=== PATIENT | female | born 1955 | race Caucasian/White ===

== ENCOUNTER 2016-09-18 17:30 | Inpatient (IN) | payer MEDICARE ==
[~2016-09-18] VITALS: Ht 167.6 cm; Wt 107.3 kg
[~2016-09-18 17:30] MED LIST: ALBU18HF INH; AMLO10TA2 PO; ASPI-621 PO; ASPI325T80 PO; B12/1TAB3 PO; B6/F1TAB PO; CHOL20003 PO; CLOP75TA PO; DEXA2TAB PO; FOLI-17 PO; HYDR25TA6 PO; IBUP-1222 PO; INSU100V8 SQ; ISOS30TA PO; ISOS60TA36 PO; LEVO100T5 PO; LOSA50TA6 PO; MAGN400T36 PO; METF10002 PO; METH750T2 PO; METO-93 PO; METO50TA82 PO; NIAC500T PO; NITR0.4T8 SL; OMEG1CAP34 PO; POTA20TA91 PO; SIMV40TA3 PO; SIMV80TA3 PO; SOTA120T26 PO; TICA90TA PO; TRAV5DRO LEFTEYE; UBID1CAP24 PO; ZOCAR
[2016-09-18] MEDS ORDERED: SODIUM CHLORIDE 0.9% 1,000 ML IV ONE (17:39)
[2016-09-18] MEDS ORDERED: RIVA20TA PO (17:59)
[2016-09-18 18:14] LABS: HEMOGLOBIN 12.8 g/dL (11.7-16.4)
[2016-09-18 18:22] LABS: ASPARTATE AMINO TRANSFERASE 22 U/L (15-37); BLOOD UREA NITROGEN 18 mg/dL (7-18)
[2016-09-18] MEDS ORDERED: OMNIPAQUE 350 MG/ML, 100ML BOTTLE ONE (19:23)
[2016-09-18] MEDS ORDERED: SODIUM CHLORIDE FLUSH 10ML SYR IVF PRN (21:00)
[2016-09-18 22:16] VITALS: BP 156/70
[2016-09-18] MEDS ORDERED: BISACODYL 10 MG SUPP PR PRN (23:00)
[2016-09-18] MEDS ORDERED: LABETALOL 5MG/ML, 20ML IV PRN (23:00)
[2016-09-18] MEDS ORDERED: POLYETHYLENE GLYCOL 17 GM PACKET PO PRN (23:00)
[2016-09-18] MEDS ORDERED: ONDANSETRON ODT 4 MG PO PRN (23:00)
[2016-09-18] MEDS ORDERED: ACETAMINOPHEN 325 MG TABLET PO PRN (23:00)
[2016-09-18] MEDS ORDERED: TRAZODONE 50MG TABLET PO PRN (23:00)
[2016-09-18] MEDS ORDERED: DOCUSATE 100 MG CAPSULE PO PRN (23:00)
[2016-09-18] MEDS: SIMVASTATIN 40 MG TABLET PO SCH (23:20)
[2016-09-18] MEDS: SOTALOL 120MG TABLET PO SCH (23:20)
[2016-09-18] MEDS: SODIUM CHLORIDE 0.9% 1,000 ML IV SCH (23:20)
[2016-09-19] MEDS: INSULIN DETEMIR 100 UNITS/ML, PEN SQ-INSULIN SCH ×3 (00:39→22:14)
[2016-09-19] MEDS: TRAVOPROST OPHTH 0.004%, 2.5ML LEFTEYE SCH ×3 (00:39→22:13)
[2016-09-19 02:41] VITALS: BP 126/75
[2016-09-19 05:22] LABS: HEMOGLOBIN 12.3 g/dL (11.7-16.4)
[2016-09-19 05:35] LABS: BLOOD UREA NITROGEN 14 mg/dL (7-18)
[2016-09-19] MEDS: SODIUM CHLORIDE 0.9% 1,000 ML IV SCH ×3 (05:35→18:06)
[2016-09-19 05:39] LABS: ASPARTATE AMINO TRANSFERASE 20 U/L (15-37)
[2016-09-19] MEDS: INSULIN ASPART 100 UNITS/ML, PEN SQ-INSULIN SCH ×4 (07:00→22:14)
[2016-09-19 07:42] VITALS: BP 143/75
[2016-09-19] MEDS: B6 HOMEMEDPO SCH (09:00)
[2016-09-19] MEDS ORDERED: FOLIC ACID 1 MG TABLET PO SCH ×2 (09:00→09:37)
[2016-09-19] MEDS: B12 HOMEMEDPO SCH (09:00)
[2016-09-19] MEDS: LEVOMEFOLATE CALCIUM HOMEMEDPO SCH (09:00)
[2016-09-19] MEDS: OMEGA-3/FISH OIL CAPSULE PO SCH ×2 (09:40→22:19)
[2016-09-19] MEDS: AMLODIPINE 5 MG TABLET PO SCH (09:40)
[2016-09-19] MEDS: SOTALOL 120MG TABLET PO SCH ×2 (09:41→22:18)
[2016-09-19] MEDS: CHOLECALCIFEROL 1,000 UNIT TABLET PO SCH ×2 (09:41→22:19)
[2016-09-19] MEDS: LOSARTAN 50MG TABLET PO SCH (09:41)
[2016-09-19] MEDS: LEVOTHYROXINE 100 MCG TABLET PO SCH (09:41)
[2016-09-19] MEDS: ISOSORBIDE MONONITRATE ER 60 MG TABLET PO SCH (09:42)
[2016-09-19] MEDS: HYDROCHLOROTHIAZIDE 25 MG TABLET PO SCH (09:42)
[2016-09-19 11:59] VITALS: BP 139/77
[2016-09-19 13:29] LABS: HEMOGLOBIN 11.9 g/dL (11.7-16.4)
[2016-09-19] MEDS ORDERED: POTASSIUM CHLORIDE 20 MEQ TAB.ER.PRT PO ONE (13:30)
[2016-09-19 16:18] VITALS: BP 104/67
[2016-09-19] MEDS: MOVIPREP POWDER 1 PREP KIT PO SCH (18:06)
[2016-09-19 19:36] VITALS: BP 132/71
[2016-09-19] MEDS ORDERED: TEMPLATE NON-FORMULARY MED. (Ubidecarenone/Vit E Acetate (Co Q-10 100 Mg Softgel) 100 MG) PO SCH (21:00)
[2016-09-19] MEDS: SIMVASTATIN 40 MG TABLET PO SCH (22:19)
[2016-09-19 23:27] VITALS: BP 114/65
[2016-09-20] MEDS: SODIUM CHLORIDE 0.9% 1,000 ML IV SCH ×2 (01:07→08:07)
[2016-09-20] MEDS: MOVIPREP POWDER 1 PREP KIT PO SCH (01:08)
[2016-09-20 03:34] VITALS: BP 120/78
[2016-09-20] MEDS: INSULIN ASPART 100 UNITS/ML, PEN SQ-INSULIN SCH ×2 (07:00→11:00)
[2016-09-20 07:09] LABS: HEMOGLOBIN 11.8 g/dL (11.7-16.4)
[2016-09-20 07:20] VITALS: BP 129/79
[2016-09-20 07:20] LABS: ASPARTATE AMINO TRANSFERASE 23 U/L (15-37); BLOOD UREA NITROGEN 5 mg/dL (7-18)
[2016-09-20] MEDS: LOSARTAN 50MG TABLET PO SCH (08:07)
[2016-09-20] MEDS: SOTALOL 120MG TABLET PO SCH (08:07)
[2016-09-20] MEDS: AMLODIPINE 5 MG TABLET PO SCH (08:08)
[2016-09-20] MEDS: OMEGA-3/FISH OIL CAPSULE PO SCH (08:08)
[2016-09-20] MEDS: HYDROCHLOROTHIAZIDE 25 MG TABLET PO SCH (08:08)
[2016-09-20] MEDS: ISOSORBIDE MONONITRATE ER 60 MG TABLET PO SCH (08:09)
[2016-09-20] MEDS: LEVOTHYROXINE 100 MCG TABLET PO SCH (08:09)
[2016-09-20] MEDS: CHOLECALCIFEROL 1,000 UNIT TABLET PO SCH (08:09)
[2016-09-20] MEDS: B6 HOMEMEDPO SCH (08:12)
[2016-09-20] MEDS: TRAVOPROST OPHTH 0.004%, 2.5ML LEFTEYE SCH (08:12)
[2016-09-20] MEDS: LEVOMEFOLATE CALCIUM HOMEMEDPO SCH (08:12)
[2016-09-20] MEDS: B12 HOMEMEDPO SCH (08:12)
[2016-09-20] MEDS ORDERED: MIDAZOLAM 1 MG/ML, 5ML ONE (08:33)
[2016-09-20] MEDS ORDERED: FENTANYL PF 100 MCG/2ML ONE (08:33)
[2016-09-20] MEDS: INSULIN DETEMIR 100 UNITS/ML, PEN SQ-INSULIN SCH (11:44)
[2016-09-20 13:00] VITALS: BP 122/68
[2016-09-20 13:32] VITALS: BP 146/79
[2016-09-20 16:29] VITALS: BP 136/82
== END 2016-09-20 17:41 | disposition home health service (06) | DRG 394 ==
LOC: ED 20:55 → EDIP 20:56 → ED 21:25 → 4NOR 22:01 → DCLOUNGE 09-20 16:34
PROVIDERS: ADMIT Internal Medicine; ATTEND Internal Medicine
PROC: 0DBN8ZX Excision of Sigmoid Colon, Via Natural or Artificial Opening Endoscopic, Diagnostic (ICD-10-PCS; 2016-09-20)
PROC: 0DBM8ZX Excision of Descending Colon, Via Natural or Artificial Opening Endoscopic, Diagnostic (ICD-10-PCS; 2016-09-20)
PROC: 0DBK8ZX Excision of Ascending Colon, Via Natural or Artificial Opening Endoscopic, Diagnostic (ICD-10-PCS; principal; 2016-09-20 09:00)
DX: K64.4 Residual hemorrhoidal skin tags (principal); N17.9 Acute kidney failure, unspecified; D68.69 Other thrombophilia; K63.5 Polyp of colon; R79.89 Other specified abnormal findings of blood chemistry; I25.10 Atherosclerotic heart disease of native coronary artery without angina pectoris; E11.9 Type 2 diabetes mellitus without complications; I10 Essential (primary) hypertension; E66.01 Morbid (severe) obesity due to excess calories; E78.5 Hyperlipidemia, unspecified; I48.0 Paroxysmal atrial fibrillation; K76.0 Fatty (change of) liver, not elsewhere classified; R16.0 Hepatomegaly, not elsewhere classified; Z85.038 Personal history of other malignant neoplasm of large intestine; Z79.4 Long term (current) use of insulin; Z79.01 Long term (current) use of anticoagulants; I25.2 Old myocardial infarction; Z90.49 Acquired absence of other specified parts of digestive tract; Z95.1 Presence of aortocoronary bypass graft; Z90.710 Acquired absence of both cervix and uterus; Z95.5 Presence of coronary angioplasty implant and graft; Z88.5 Allergy status to narcotic agent; Z88.0 Allergy status to penicillin; Z91.011 Allergy to milk products; Z88.8 Allergy status to other drugs, medicaments and biological substances; Z80.1 Family history of malignant neoplasm of trachea, bronchus and lung
CPT/HCPCS: 36415; 74177; 80053; 82962; 83036; 83735; 85014; 85018; 85025; 85610; 85730; 86850; 86900; 88305; 96360; 96361; J2250; J3010; Q9967; J1815; J7030

== ENCOUNTER 2016-09-24 13:18 | Inpatient (IN) | payer MEDICARE ==
[~2016-09-24] VITALS: Ht 167.6 cm; Wt 109.1 kg
[~2016-09-24 13:18] MED LIST changes: +RIVA20TA PO
[2016-09-24] MEDS ORDERED: PANTOPRAZOLE 80 MG in SODIUM CHLORIDE 0.9% 100 ML IV SCH (13:45)
[2016-09-24] MEDS ORDERED: PANTOPRAZOLE 80 MG in SODIUM CHLORIDE 0.9% 50 ML IVPB ONE (13:45)
[2016-09-24] MEDS ORDERED: SODIUM CHLORIDE 0.9% 1,000ML IVBOLUS ONE (14:00)
[2016-09-24] MEDS ORDERED: SODIUM CHLORIDE FLUSH 10ML SYR IVF ONE (14:00)
[2016-09-24 14:21] LABS: ASPARTATE AMINO TRANSFERASE 20 U/L (15-37); BLOOD UREA NITROGEN 13 mg/dL (7-18)
[2016-09-24] MEDS ORDERED: HYDROcodone/APAP 5/325 TABLET PO PRN (16:30)
[2016-09-24] MEDS ORDERED: NITROGLYCERIN 0.4 MG BOTTLE (25 TABS) SL PRN (16:30)
[2016-09-24] MEDS ORDERED: ACETAMINOPHEN 325 MG TABLET PO PRN (16:30)
[2016-09-24] MEDS ORDERED: LORazepam 2 MG/ML, 1ML IVPush PRN (16:30)
[2016-09-24] MEDS ORDERED: MORPHINE SULFATE 4 MG/ML, 1ML IVPush PRN (16:30)
[2016-09-24] MEDS ORDERED: ONDANSETRON 2MG/ML, 2ML IVP PRN (16:30)
[2016-09-24 18:15] VITALS: BP 107/68
[2016-09-24 19:09] VITALS: BP 133/76
[2016-09-24] MEDS: MOVIPREP POWDER 1 PREP KIT PO SCH ×2 (20:00→20:30)
[2016-09-24] MEDS: INSULIN ASPART 100 UNITS/ML, PEN SQ-INSULIN SCH (21:00)
[2016-09-24] MEDS ORDERED: SIMVASTATIN 40 MG TABLET PO SCH (22:00)
[2016-09-24] MEDS: SOTALOL 120MG TABLET PO SCH (23:25)
[2016-09-25 01:31] VITALS: BP 127/84
[2016-09-25] MEDS: INSULIN REGULAR 100 UNITS/ML, 3ML VIAL SQ-INSULIN SCH ×2 (03:00→09:00)
[2016-09-25 05:23] LABS: ASPARTATE AMINO TRANSFERASE 20 U/L (15-37); BLOOD UREA NITROGEN 12 mg/dL (7-18)
[2016-09-25] MEDS ORDERED: LEVOTHYROXINE 100 MCG TABLET PO SCH (06:00)
[2016-09-25] MEDS: INSULIN ASPART 100 UNITS/ML, PEN SQ-INSULIN SCH ×2 (06:46→11:00)
[2016-09-25 07:38] VITALS: BP 127/79
[2016-09-25] MEDS ORDERED: FENTANYL PF 100 MCG/2ML ONE (07:53)
[2016-09-25] MEDS ORDERED: MIDAZOLAM 1 MG/ML, 5ML ONE (07:53)
[2016-09-25] MEDS ORDERED: ISOSORBIDE MONONITRATE ER 60 MG TABLET PO SCH (09:00)
[2016-09-25] MEDS ORDERED: AMLODIPINE 5 MG TABLET PO SCH (09:00)
[2016-09-25] MEDS ORDERED: LOSARTAN 50MG TABLET PO SCH (09:00)
[2016-09-25] MEDS ORDERED: HYDROCHLOROTHIAZIDE 25 MG TABLET PO SCH (09:00)
[2016-09-25] MEDS: MOVIPREP POWDER 1 PREP KIT PO SCH (09:00)
[2016-09-25 09:19] VITALS: BP 140/75
[2016-09-25] MEDS: SOTALOL 120MG TABLET PO SCH (09:29)
[2016-09-25] MEDS: HYDROCORTISONE 25 MG SUPP PR SCH ×2 (09:30→11:07)
[2016-09-25] MEDS ORDERED: HYDR25SU21 PR ×2 (13:07→13:09)
[2016-09-25 13:08] VITALS: BP 127/74
[2016-09-25] MEDS ORDERED: HYDR25SU3 PR (14:05)
[2016-09-25 14:10] VITALS: BP 119/55
[2016-09-25] MEDS ORDERED: TRAVOPROST OPHTH 0.004%, 2.5ML OP SCH (21:00)
[2016-09-26] MEDS ORDERED: PSYLLIUM PACKET PO SCH (09:00)
== END 2016-09-25 15:10 | disposition home or self-care (01) | DRG 813 ==
LOC: ED 14:13 → EDIP 16:31 → 4NOR 17:47 → DCLOUNGE 09-25 15:00
PROVIDERS: ADMIT Hospitalist; ATTEND Hospitalist
PROC: 0W3P8ZZ Control Bleeding in Gastrointestinal Tract, Via Natural or Artificial Opening Endoscopic (ICD-10-PCS; principal; 2016-09-25 08:30)
DX: D68.32 Hemorrhagic disorder due to extrinsic circulating anticoagulants (principal); K63.3 Ulcer of intestine; K64.8 Other hemorrhoids; E66.01 Morbid (severe) obesity due to excess calories; I25.10 Atherosclerotic heart disease of native coronary artery without angina pectoris; I10 Essential (primary) hypertension; K57.30 Diverticulosis of large intestine without perforation or abscess without bleeding; E11.9 Type 2 diabetes mellitus without complications; E78.5 Hyperlipidemia, unspecified; F41.9 Anxiety disorder, unspecified; I48.0 Paroxysmal atrial fibrillation; K63.5 Polyp of colon; K64.4 Residual hemorrhoidal skin tags; Z79.4 Long term (current) use of insulin; I25.2 Old myocardial infarction; Z85.038 Personal history of other malignant neoplasm of large intestine; Z79.01 Long term (current) use of anticoagulants; Z80.1 Family history of malignant neoplasm of trachea, bronchus and lung; Z86.010 Personal history of colon polyps; Z90.49 Acquired absence of other specified parts of digestive tract; Z95.0 Presence of cardiac pacemaker; Z95.1 Presence of aortocoronary bypass graft; Z95.5 Presence of coronary angioplasty implant and graft; Z68.38 Body mass index [BMI] 38.0-38.9, adult; Z90.710 Acquired absence of both cervix and uterus; Z88.5 Allergy status to narcotic agent; Z88.0 Allergy status to penicillin; Z88.8 Allergy status to other drugs, medicaments and biological substances; Z91.011 Allergy to milk products; Z82.49 Family history of ischemic heart disease and other diseases of the circulatory system; T45.515A Adverse effect of anticoagulants, initial encounter
CPT/HCPCS: 36415; 80053; 82962; 83690; 85025; 85610; 85730; 86850; 86900; 96365; 96366; J2250; J3010; C9113; J7030

== ENCOUNTER 2016-10-17 14:00 | Emergency (ER) | payer MEDICARE ==
[~2016-10-17] VITALS: Ht 167.6 cm; Wt 108.4 kg
[~2016-10-17 14:00] MED LIST changes: +HYDR25SU21 PR; +HYDR25SU3 PR
[2016-10-17] MEDS ORDERED: SODIUM CHLORIDE 0.9% 1,000ML IVBOLUS ONE (15:30)
[2016-10-17] MEDS ORDERED: SODIUM CHLORIDE FLUSH 10ML SYR IVF ONE (15:30)
[2016-10-17 16:34] LABS: BLOOD UREA NITROGEN 17 mg/dL (7-18)
[2016-10-17 16:35] VITALS: BP 110/71
[2016-10-17 16:38] LABS: ASPARTATE AMINO TRANSFERASE 23 U/L (15-37)
== END 2016-10-17 17:06 | disposition home or self-care (01) ==
LOC: ED 17:00
DX: K62.5 Hemorrhage of anus and rectum (principal); K64.8 Other hemorrhoids; E11.9 Type 2 diabetes mellitus without complications; I10 Essential (primary) hypertension; I25.810 Atherosclerosis of coronary artery bypass graft(s) without angina pectoris; Z95.1 Presence of aortocoronary bypass graft; I25.2 Old myocardial infarction; Z90.710 Acquired absence of both cervix and uterus; Z90.49 Acquired absence of other specified parts of digestive tract
CPT/HCPCS: 36415; 80053; 83690; 85025; 99284

== ENCOUNTER 2017-08-20 13:52 | Inpatient (IN) | payer MEDICARE ==
[~2017-08-20] VITALS: Ht 167.6 cm; Wt 110.6 kg
[~2017-08-20 13:52] MED LIST changes: +CHOL2000 PO; -CHOL20003 PO; +NITR0.4T28 SL; -NITR0.4T8 SL; -UBID1CAP24 PO; +UBID1CAP43 PO
[2017-08-20] MEDS ORDERED: SODIUM CHLORIDE 0.9% 1,000 ML IV ONE (14:09)
[2017-08-20] MEDS ORDERED: NITROGLYCERIN SINGLE TAB 0.4 MG SL ONE (14:19)
[2017-08-20] MEDS ORDERED: ASPIRIN 81 MG TABLET CHEW ONE (14:19)
[2017-08-20] MEDS ORDERED: ASPIRIN 81 MG TABLET CHEW PO ONE (14:30)
[2017-08-20] MEDS ORDERED: NITROGLYCERIN SINGLE TAB 0.4 MG SL PRN (14:30)
[2017-08-20] MEDS ORDERED: FLUT15.88 NAS (14:40)
[2017-08-20] MEDS ORDERED: ASPI-496 PO (14:40)
[2017-08-20] MEDS ORDERED: INSU100I13 SQ (14:40)
[2017-08-20 14:41] LABS: BASOPHILS # (AUTO) 0.05 x10^3/uL (0-0.1); BASOPHILS % (AUTO) 0 % (0-1); EOSINOPHILS # (AUTO) 0.24 x10^3/uL (0-0.4); EOSINOPHILS % (AUTO) 2 % (1-7); LYMPHOCYTES # (AUTO) 1.94 x10^3/uL (1-3.4); LYMPHOCYTES % (AUTO) 18 % (22-44); MD NO; MEAN CORPUSCULAR HEMOGLOBIN 29.5 pg (27.0-34.8); MEAN CORPUSCULAR HGB CONC 33.6 g/dL (32.4-35.8); MEAN CORPUSCULAR VOLUME 87.8 fL (80-100); MEAN PLATELET VOLUME 8.5 fL (7.4-10.4); MONOCYTES # (AUTO) 0.62 x10^3/uL (0.2-0.8); MONOCYTES % (AUTO) 6 % (2-9); NEUTROPHILS # (AUTO) 7.72 x10^3/uL (1.8-6.8); NEUTROPHILS % (AUTO) 73 % (42-75); PLATELET COUNT 249 x10^3/uL (130-400); RED BLOOD COUNT 4.59 x10^6/uL (3.82-5.3); RED CELL DISTRIBUTION WIDTH 17.1 % (9.6-15.2)
[2017-08-20 14:53] LABS: ALBUMIN 3.7 g/dL (3.4-5.0); ANION GAP 9 mmol/L (5-15); CALCIUM 9.2 mg/dL (8.5-10.1); CHLORIDE 101 mmol/L (98-107); CREATININE 1.07 mg/dL (0.55-1.02)
[2017-08-20 14:57] LABS: PROTHROMBIN TIME 10.4 Seconds (9.6-11.5); TROPONIN I 0.081 ng/mL (0.000-0.045)
[2017-08-20] MEDS ORDERED: HYDROcodone/APAP 5/325 TABLET PO PRN (18:00)
[2017-08-20] MEDS ORDERED: hydrALAzine 20 MG/ML, 1ML IVPush PRN (18:00)
[2017-08-20] MEDS ORDERED: NITROGLYCERIN 0.4 MG BOTTLE (25 TABS) SL SCH (18:00)
[2017-08-20] MEDS ORDERED: morphine SULFATE 10 MG/ML, 1ML IVPush PRN (18:00)
[2017-08-20] MEDS ORDERED: ACETAMINOPHEN 325 MG TABLET PO PRN (18:00)
[2017-08-20] MEDS ORDERED: TEMAZEPAM 15 MG CAPSULE PO PRN (18:00)
[2017-08-20] MEDS ORDERED: OMEGA-3/FISH OIL CAPSULE PO SCH (18:00)
[2017-08-20] MEDS ORDERED: ONDANSETRON 2MG/ML, 2ML IVPush PRN (18:00)
[2017-08-20] MEDS ORDERED: CHOLECALCIFEROL 1,000 UNIT TABLET PO SCH (18:00)
[2017-08-20 18:10] VITALS: BP 157/88
[2017-08-20 18:43] LABS: FREE T4 (FREE THYROXINE) 1.29 ng/dL (0.76-1.46); THYROID STIMULATING HORMONE 1.78 mIU/L (0.358-3.740)
[2017-08-20 19:24] LABS: HEMOGLOBIN A1C 6.7 % (4.2-6.3)
[2017-08-20] MEDS ORDERED: SIMVASTATIN 40 MG TABLET PO SCH (21:00)
[2017-08-20] MEDS ORDERED: MAGNESIUM OXIDE 400 MG TABLET PO SCH (21:00)
[2017-08-20] MEDS: DORZOLAMIDE OPHTH 2%, 10ML EACHEYE SCH (22:00)
[2017-08-20] MEDS: FLUTICASONE NASAL SPRAY 16GM NAS SCH (22:15)
[2017-08-20] MEDS: SOTALOL 80MG TABLET PO SCH (22:16)
[2017-08-20] MEDS: LOSARTAN 50MG TABLET PO SCH (22:16)
[2017-08-20] MEDS: ASPIRIN 81 MG TABLET EC PO SCH (22:16)
[2017-08-20] MEDS: INSULIN GLARGINE 100 UNITS/ML, PEN SQ-INSULIN SCH (22:16)
[2017-08-20] MEDS: SODIUM CHLORIDE 0.9% 1,000 ML IV SCH (22:17)
[2017-08-20 22:52] LABS: TROPONIN I 0.287 ng/mL (0.000-0.045)
[2017-08-20] MEDS ORDERED: HEPARIN 5,000 UNITS/ML, 1ML IV PRN (23:45)
[2017-08-20] MEDS ORDERED: HEPARIN 5,000 UNITS/ML, 1ML IV ONE (23:45)
[2017-08-20] MEDS ORDERED: HEPARIN 25,000 UNITS/500ML PMX 500 ML IV PRN (23:45)
[2017-08-21 00:45] VITALS: BP 140/78
[2017-08-21 04:59] LABS: BASOPHILS # (AUTO) 0.03 x10^3/uL (0-0.1); BASOPHILS % (AUTO) 0 % (0-1); EOSINOPHILS % (AUTO) 3 % (1-7); LYMPHOCYTES # (AUTO) 2.33 x10^3/uL (1-3.4); LYMPHOCYTES % (AUTO) 31 % (22-44); MD NO; MEAN CORPUSCULAR HEMOGLOBIN 29.6 pg (27.0-34.8); MEAN CORPUSCULAR HGB CONC 33.6 g/dL (32.4-35.8); MEAN CORPUSCULAR VOLUME 88.1 fL (80-100); MEAN PLATELET VOLUME 8.7 fL (7.4-10.4); MONOCYTES # (AUTO) 0.58 x10^3/uL (0.2-0.8); MONOCYTES % (AUTO) 8 % (2-9); NEUTROPHILS # (AUTO) 4.33 x10^3/uL (1.8-6.8); NEUTROPHILS % (AUTO) 58 % (42-75); PLATELET COUNT 185 x10^3/uL (130-400); RED BLOOD COUNT 4.27 x10^6/uL (3.82-5.3); RED CELL DISTRIBUTION WIDTH 16.5 % (9.6-15.2)
[2017-08-21 05:11] LABS: CHLORIDE 103 mmol/L (98-107)
[2017-08-21 05:27] LABS: ALANINE AMINOTRANSFERASE 30 U/L (12-78); ALBUMIN 3.4 g/dL (3.4-5.0); ALKALINE PHOSPHATASE 72 U/L (45-117); ANION GAP 9 mmol/L (5-15); BILIRUBIN,TOTAL 0.5 mg/dL (0.2-1.0); CALCIUM 8.8 mg/dL (8.5-10.1); CREATININE 0.98 mg/dL (0.55-1.02); TOTAL PROTEIN 6.3 g/dL (6.4-8.2); TROPONIN I 0.134 ng/mL (0.000-0.045)
[2017-08-21 07:49] VITALS: BP 149/87
[2017-08-21] MEDS ORDERED: REGADENOSON 0.4 MG/5 ML SYRINGE ONE (08:07)
[2017-08-21] MEDS: FLUTICASONE NASAL SPRAY 16GM NAS SCH ×3 (08:26→20:12)
[2017-08-21] MEDS: DORZOLAMIDE OPHTH 2%, 10ML EACHEYE SCH ×2 (08:27→20:11)
[2017-08-21] MEDS: LEVOMEFOLATE CALCIUM HOMEMEDPO SCH (08:28)
[2017-08-21] MEDS: B6 HOMEMEDPO SCH (08:28)
[2017-08-21] MEDS: B12 HOMEMEDPO SCH (08:28)
[2017-08-21] MEDS: SOTALOL 80MG TABLET PO SCH ×2 (08:30→20:11)
[2017-08-21] MEDS: POTASSIUM CHLORIDE 20 MEQ TAB.ER.PRT PO SCH (08:30)
[2017-08-21] MEDS: HYDROCHLOROTHIAZIDE 25 MG TABLET PO SCH (08:30)
[2017-08-21] MEDS: PANTOPROZOLE 40MG TABLET PO SCH ×2 (08:31→08:33)
[2017-08-21] MEDS: MAGNESIUM OXIDE 400 MG TABLET PO SCH (08:31)
[2017-08-21] MEDS: LEVOTHYROXINE 100 MCG TABLET PO SCH (08:32)
[2017-08-21] MEDS ORDERED: SIMVASTATIN 20 MG TABLET PO SCH (08:32)
[2017-08-21] MEDS: LOSARTAN 50MG TABLET PO SCH ×2 (08:33→20:11)
[2017-08-21] MEDS: AMLODIPINE 2.5 MG TABLET PO SCH (08:44)
[2017-08-21 08:58] LABS: CHOL/HDL RATIO 4.9; LDL/HDL RATIO 1.8 (0.5-3.0)
[2017-08-21] MEDS ORDERED: FOLIC ACID 1 MG TABLET PO SCH (09:00)
[2017-08-21] MEDS ORDERED: ISOSORBIDE MONONITRATE ER 60 MG TABLET PO SCH (09:00)
[2017-08-21] MEDS ORDERED: TRAVOPROST OPHTH 0.004%, 2.5ML LEFTEYE SCH (09:00)
[2017-08-21] MEDS ORDERED: ENOXAPARIN 30 MG/0.3 ML SQ SCH (09:00)
[2017-08-21] MEDS: SODIUM CHLORIDE 0.9% 1,000 ML IV SCH (12:08)
[2017-08-21] MEDS: FOLIC ACID 1 MG TABLET PO SCH (12:08)
[2017-08-21 13:08] VITALS: BP 142/80
[2017-08-21] MEDS ORDERED: VERAPAMIL 2.5 MG/ML, 2ML ONE (14:54)
[2017-08-21] MEDS ORDERED: FENTANYL PF 100 MCG/2ML ONE (14:54)
[2017-08-21] MEDS ORDERED: LIDOCAINE 2%, 20ML ONE (14:54)
[2017-08-21] MEDS ORDERED: HEPARIN 1,000 UNITS/ML, 10ML ONE (14:54)
[2017-08-21] MEDS ORDERED: MIDAZOLAM 1 MG/ML, 5ML ONE (14:55)
[2017-08-21] MEDS ORDERED: DIPHENHYDRAMINE 50 MG/ML, 1ML ONE (15:13)
[2017-08-21] MEDS ORDERED: CLOPIDOGREL 300 MG TABLET ONE ×2 (15:39→16:01)
[2017-08-21] MEDS ORDERED: BIVALIRUDIN 250 MG ONE (15:39)
[2017-08-21] MEDS ORDERED: ADENOSINE 6 MG/2 ML ONE (15:56)
[2017-08-21] MEDS ORDERED: EPTIFIBATIDE 20 MG/10 ML ONE (16:00)
[2017-08-21] MEDS ORDERED: SODIUM CHLORIDE 0.9% 1,000 ML IV SCH (16:11)
[2017-08-21 20:07] VITALS: BP 138/83
[2017-08-21] MEDS: INSULIN GLARGINE 100 UNITS/ML, PEN SQ-INSULIN SCH (20:10)
[2017-08-21] MEDS: ASPIRIN 81 MG TABLET EC PO SCH (20:11)
[2017-08-22 01:02] VITALS: BP 147/79
[2017-08-22] MEDS: PANTOPROZOLE 40MG TABLET PO SCH (07:30)
[2017-08-22] MEDS: HYDROCHLOROTHIAZIDE 25 MG TABLET PO SCH (07:52)
[2017-08-22] MEDS: SOTALOL 80MG TABLET PO SCH (07:52)
[2017-08-22] MEDS: POTASSIUM CHLORIDE 20 MEQ TAB.ER.PRT PO SCH (07:53)
[2017-08-22] MEDS: MAGNESIUM OXIDE 400 MG TABLET PO SCH (07:53)
[2017-08-22] MEDS: LOSARTAN 50MG TABLET PO SCH (07:54)
[2017-08-22] MEDS: AMLODIPINE 2.5 MG TABLET PO SCH (07:54)
[2017-08-22 08:18] VITALS: BP 142/73
[2017-08-22] MEDS: LEVOMEFOLATE CALCIUM HOMEMEDPO SCH (09:00)
[2017-08-22] MEDS: B6 HOMEMEDPO SCH (09:00)
[2017-08-22] MEDS ORDERED: CLOPIDOGREL 75 MG TABLET PO SCH (09:00)
[2017-08-22] MEDS: B12 HOMEMEDPO SCH (09:00)
[2017-08-22] MEDS: FOLIC ACID 1 MG TABLET PO SCH (12:38)
[2017-08-22] MEDS: LEVOTHYROXINE 100 MCG TABLET PO SCH (12:38)
[2017-08-22] MEDS: DORZOLAMIDE OPHTH 2%, 10ML EACHEYE SCH (12:39)
[2017-08-22 14:11] VITALS: BP 144/78
[2017-08-22] MEDS ORDERED: AMLO2.5T PO (14:58)
[2017-08-22] MEDS ORDERED: CLOP75TA PO (14:58)
[2017-08-22] MEDS ORDERED: MAGN400T26 PO (14:58)
== END 2017-08-22 18:21 | disposition home or self-care (01) | DRG 250 ==
LOC: ED 16:10 → EDIP 16:11 → SUATTDRO 16:36 → ED 17:04 → 5SO 18:14
PROVIDERS: ADMIT Internal Medicine; ATTEND Internal Medicine
PROC: 4A023N7 Measurement of Cardiac Sampling and Pressure, Left Heart, Percutaneous Approach (ICD-10-PCS; principal; 2017-08-21)
PROC: B2111ZZ Fluoroscopy of Multiple Coronary Arteries using Low Osmolar Contrast (ICD-10-PCS; 2017-08-21)
PROC: B2151ZZ Fluoroscopy of Left Heart using Low Osmolar Contrast (ICD-10-PCS; 2017-08-21)
PROC: 02703ZZ Dilation of Coronary Artery, One Artery, Percutaneous Approach (ICD-10-PCS; 2017-08-21)
DX: T82.855A Stenosis of coronary artery stent, initial encounter (principal); N17.0 Acute kidney failure with tubular necrosis; I21.4 Non-ST elevation (NSTEMI) myocardial infarction; D68.69 Other thrombophilia; E66.01 Morbid (severe) obesity due to excess calories; E11.9 Type 2 diabetes mellitus without complications; E03.9 Hypothyroidism, unspecified; E78.5 Hyperlipidemia, unspecified; I10 Essential (primary) hypertension; I25.10 Atherosclerotic heart disease of native coronary artery without angina pectoris; I34.0 Nonrheumatic mitral (valve) insufficiency; Y83.1 Surgical operation with implant of artificial internal device as the cause of abnormal reaction of the patient, or of later complication, without mention of misadventure at the time of the procedure; I35.0 Nonrheumatic aortic (valve) stenosis; I48.0 Paroxysmal atrial fibrillation; Z79.82 Long term (current) use of aspirin; Z68.39 Body mass index [BMI] 39.0-39.9, adult; Z80.1 Family history of malignant neoplasm of trachea, bronchus and lung; I25.2 Old myocardial infarction; Z82.49 Family history of ischemic heart disease and other diseases of the circulatory system; Z85.038 Personal history of other malignant neoplasm of large intestine; Z87.891 Personal history of nicotine dependence; Z90.49 Acquired absence of other specified parts of digestive tract; Z90.710 Acquired absence of both cervix and uterus; Z95.0 Presence of cardiac pacemaker; Z85.9 Personal history of malignant neoplasm, unspecified; Z88.0 Allergy status to penicillin; Z88.8 Allergy status to other drugs, medicaments and biological substances; Z91.011 Allergy to milk products
CPT/HCPCS: 36415; 71045; 78452; 80048; 80053; 80061; 82040; 82962; 83036; 83735; 83880; 84100; 84439; 84443; 84484; 85025; 85520; 85610; 92920; 93005; 93017; 93306; 93458; 93880; 99156; 99157; C1769; C1894; J0153; J0583; J1644; J2250; J2785; J3010; J3490; 92928; A9502; C1725; C1887; C9898; J1200; J1327; J1815; J7030; Q9967

== ENCOUNTER 2017-08-25 11:13 | Observation (INO) | payer MEDICARE ==
[~2017-08-25] VITALS: Ht 167.6 cm; Wt 104.9 kg
[~2017-08-25 11:13] MED LIST changes: +AMLO2.5T PO; +ASPI-496 PO; +FLUT15.88 NAS; +INSU100I13 SQ; +MAGN400T26 PO
[2017-08-25] MEDS ORDERED: SODIUM CHLORIDE FLUSH 10ML SYR IVF ONE (11:30)
[2017-08-25 12:11] LABS: BASOPHILS # (AUTO) 0.04 x10^3/uL (0-0.1); BASOPHILS % (AUTO) 0 % (0-1); EOSINOPHILS # (AUTO) 0.18 x10^3/uL (0-0.4); EOSINOPHILS % (AUTO) 2 % (1-7); LYMPHOCYTES # (AUTO) 2.04 x10^3/uL (1-3.4); LYMPHOCYTES % (AUTO) 19 % (22-44); MD NO; MEAN CORPUSCULAR HEMOGLOBIN 29.4 pg (27.0-34.8); MEAN CORPUSCULAR HGB CONC 32.9 g/dL (32.4-35.8); MEAN CORPUSCULAR VOLUME 89.2 fL (80-100); MEAN PLATELET VOLUME 8.6 fL (7.4-10.4); MONOCYTES # (AUTO) 0.66 x10^3/uL (0.2-0.8); MONOCYTES % (AUTO) 6 % (2-9); NEUTROPHILS # (AUTO) 8.02 x10^3/uL (1.8-6.8); NEUTROPHILS % (AUTO) 73 % (42-75); PLATELET COUNT 299 x10^3/uL (130-400); RED BLOOD COUNT 4.84 x10^6/uL (3.82-5.3); RED CELL DISTRIBUTION WIDTH 17.2 % (9.6-15.2)
[2017-08-25 12:17] LABS: INTERNATIONAL NORMALIZED RATIO 0.99 (0.93-1.1); PROTHROMBIN TIME 10.3 Seconds (9.6-11.5)
[2017-08-25 12:29] LABS: ALANINE AMINOTRANSFERASE 38 U/L (12-78); ALBUMIN 3.9 g/dL (3.4-5.0); ANION GAP 9 mmol/L (5-15); CHLORIDE 103 mmol/L (98-107); CREATININE 1.15 mg/dL (0.55-1.02)
[2017-08-25 12:33] LABS: ALKALINE PHOSPHATASE 82 U/L (45-117); BILIRUBIN,TOTAL 0.9 mg/dL (0.2-1.0); TOTAL PROTEIN 7.4 g/dL (6.4-8.2)
[2017-08-25 12:35] LABS: TROPONIN I 0.376 ng/mL (0.000-0.045)
[2017-08-25] MEDS ORDERED: ASPIRIN 325 MG TABLET PO ONE (13:00)
[2017-08-25] MEDS ORDERED: ASPIRIN 325 MG TABLET ONE (13:16)
[2017-08-25] MEDS ORDERED: DOCUSATE 100 MG CAPSULE PO PRN (15:00)
[2017-08-25] MEDS ORDERED: NITROGLYCERIN 0.4 MG BOTTLE (25 TABS) SL SCH (15:00)
[2017-08-25] MEDS ORDERED: ACETAMINOPHEN 325 MG TABLET PO PRN (15:00)
[2017-08-25] MEDS ORDERED: BISACODYL 10 MG SUPP PR PRN (15:00)
[2017-08-25] MEDS ORDERED: ONDANSETRON 2MG/ML, 2ML IVPush PRN (15:00)
[2017-08-25] MEDS ORDERED: morphine SULFATE 10 MG/ML, 1ML IVPush PRN (15:00)
[2017-08-25] MEDS ORDERED: SODIUM CHLORIDE 0.9% 1,000 ML IV ONE (15:00)
[2017-08-25] MEDS ORDERED: ENALAPRILAT 1.25 MG/ML, 2ML IVPush PRN (15:00)
[2017-08-25] MEDS ORDERED: ONDANSETRON ODT 4 MG PO PRN (15:00)
[2017-08-25 15:49] VITALS: BP 116/75
[2017-08-25] MEDS: metFORMIN 500 MG TABLET PO SCH ×2 (17:30→21:50)
[2017-08-25] MEDS: OMEGA-3/FISH OIL CAPSULE PO SCH ×2 (17:30→21:51)
[2017-08-25] MEDS: CHOLECALCIFEROL 1,000 UNIT TABLET PO SCH ×2 (17:30→21:50)
[2017-08-25 18:59] LABS: TROPONIN I 0.366 ng/mL (0.000-0.045)
[2017-08-25 19:51] VITALS: BP 145/76
[2017-08-25] MEDS ORDERED: SIMVASTATIN 40 MG TABLET PO SCH (21:00)
[2017-08-25] MEDS: TRAVOPROST OPHTH 0.004%, 2.5ML LEFTEYE SCH (21:00)
[2017-08-25] MEDS: FLUTICASONE NASAL SPRAY 16GM NAS SCH (21:00)
[2017-08-25] MEDS ORDERED: ASPIRIN 81 MG TABLET EC PO SCH (21:00)
[2017-08-25] MEDS ORDERED: INSULIN GLARGINE 100 UNITS/ML, PEN SQ-INSULIN SCH (21:00)
[2017-08-25] MEDS: LOSARTAN 50MG TABLET PO SCH (21:51)
[2017-08-25] MEDS: SOTALOL 80MG TABLET PO SCH (21:51)
[2017-08-25] MEDS: MAGNESIUM OXIDE 400 MG TABLET PO SCH (22:11)
[2017-08-26 01:27] VITALS: BP 107/70
[2017-08-26 04:56] LABS: BASOPHILS # (AUTO) 0.04 x10^3/uL (0-0.1); BASOPHILS % (AUTO) 1 % (0-1); EOSINOPHILS # (AUTO) 0.18 x10^3/uL (0-0.4); EOSINOPHILS % (AUTO) 2 % (1-7); LYMPHOCYTES # (AUTO) 2.35 x10^3/uL (1-3.4); LYMPHOCYTES % (AUTO) 29 % (22-44); MD NO; MEAN CORPUSCULAR HEMOGLOBIN 29.6 pg (27.0-34.8); MEAN CORPUSCULAR HGB CONC 33.4 g/dL (32.4-35.8); MEAN CORPUSCULAR VOLUME 88.6 fL (80-100); MEAN PLATELET VOLUME 8.5 fL (7.4-10.4); MONOCYTES % (AUTO) 7 % (2-9); NEUTROPHILS # (AUTO) 5.06 x10^3/uL (1.8-6.8); NEUTROPHILS % (AUTO) 62 % (42-75); PLATELET COUNT 219 x10^3/uL (130-400); RED BLOOD COUNT 4.26 x10^6/uL (3.82-5.3)
[2017-08-26 06:03] LABS: ALBUMIN 3.5 g/dL (3.4-5.0); ANION GAP 12 mmol/L (5-15); CALCIUM 8.7 mg/dL (8.5-10.1); CHLORIDE 100 mmol/L (98-107)
[2017-08-26 06:12] LABS: ALANINE AMINOTRANSFERASE 31 U/L (12-78); ALKALINE PHOSPHATASE 74 U/L (45-117); BILIRUBIN,TOTAL 0.7 mg/dL (0.2-1.0); CREATININE 1.24 mg/dL (0.55-1.02); FREE T4 (FREE THYROXINE) 1.25 ng/dL (0.76-1.46); TOTAL PROTEIN 6.5 g/dL (6.4-8.2)
[2017-08-26 08:11] VITALS: BP 125/74
[2017-08-26] MEDS: FLUTICASONE NASAL SPRAY 16GM NAS SCH (09:00)
[2017-08-26] MEDS ORDERED: ISOSORBIDE MONONITRATE ER 60 MG TABLET PO SCH (09:00)
[2017-08-26] MEDS ORDERED: SENNA/DOCUSATE TABLET PO SCH (09:00)
[2017-08-26] MEDS ORDERED: LEVOTHYROXINE 100 MCG TABLET PO SCH (09:00)
[2017-08-26] MEDS ORDERED: MULTIVITS,STRESS FORMULA 1 TABLET PO SCH (09:00)
[2017-08-26] MEDS ORDERED: CLOPIDOGREL 75 MG TABLET PO SCH (09:00)
[2017-08-26] MEDS ORDERED: HYDROCHLOROTHIAZIDE 25 MG TABLET PO SCH (09:00)
[2017-08-26] MEDS ORDERED: FOLIC ACID 1 MG TABLET PO SCH (09:00)
[2017-08-26] MEDS ORDERED: AMLODIPINE 2.5 MG TABLET PO SCH (09:00)
[2017-08-26] MEDS ORDERED: POTASSIUM CHLORIDE 20 MEQ TAB.ER.PRT PO SCH (09:00)
[2017-08-26] MEDS: TRAVOPROST OPHTH 0.004%, 2.5ML LEFTEYE SCH (09:01)
[2017-08-26] MEDS: MAGNESIUM OXIDE 400 MG TABLET PO SCH (09:02)
[2017-08-26] MEDS: LOSARTAN 50MG TABLET PO SCH (09:03)
[2017-08-26] MEDS: SOTALOL 80MG TABLET PO SCH (09:04)
[2017-08-26] MEDS: OMEGA-3/FISH OIL CAPSULE PO SCH (09:04)
[2017-08-26] MEDS: metFORMIN 500 MG TABLET PO SCH (09:09)
[2017-08-26] MEDS: CHOLECALCIFEROL 1,000 UNIT TABLET PO SCH (09:09)
[2017-08-26 13:23] VITALS: BP 126/64
[2017-08-26] MEDS ORDERED: FLUTICASONE NASAL SPRAY 16GM NAS SCH (21:00)
== END 2017-08-26 14:28 | disposition home or self-care (01) ==
LOC: ED 13:11 → INTOOBSV 13:41 → EDIP 13:41 → 5SO 15:35 → UNDODISIN 08-26 14:28
PROVIDERS: ADMIT Internal Medicine; ATTEND Internal Medicine
DX: R07.89 Other chest pain (principal); N17.9 Acute kidney failure, unspecified; I12.9 Hypertensive chronic kidney disease with stage 1 through stage 4 chronic kidney disease, or unspecified chronic kidney disease; N18.9 Chronic kidney disease, unspecified; I48.0 Paroxysmal atrial fibrillation; I25.10 Atherosclerotic heart disease of native coronary artery without angina pectoris; E11.22 Type 2 diabetes mellitus with diabetic chronic kidney disease; E78.5 Hyperlipidemia, unspecified; E66.01 Morbid (severe) obesity due to excess calories; E03.9 Hypothyroidism, unspecified; I25.2 Old myocardial infarction; Z80.1 Family history of malignant neoplasm of trachea, bronchus and lung; Z95.0 Presence of cardiac pacemaker; Z79.82 Long term (current) use of aspirin; Z95.5 Presence of coronary angioplasty implant and graft; Z82.49 Family history of ischemic heart disease and other diseases of the circulatory system; Z85.038 Personal history of other malignant neoplasm of large intestine
CPT/HCPCS: 36415; 71045; 80053; 82962; 83735; 83880; 84100; 84439; 84443; 84484; 85025; 85610; 85730; 93005; 96361; 96372; 96374; 99285; G0378; J1815; J2405; J7030; Q0162

== ENCOUNTER 2017-10-04 17:43 | Emergency (ER) | payer MEDICARE, OTHER ==
[~2017-10-04] VITALS: Ht 167.6 cm; Wt 107.8 kg
[2017-10-04 17:44] VITALS: BP 148/83
[2017-10-04 18:16] LABS: BASOPHILS # (AUTO) 0.07 x10^3/uL (0-0.1); BASOPHILS % (AUTO) 1 % (0-1); EOSINOPHILS # (AUTO) 0.15 x10^3/uL (0-0.4); EOSINOPHILS % (AUTO) 2 % (1-7); LYMPHOCYTES # (AUTO) 2.12 x10^3/uL (1-3.4); LYMPHOCYTES % (AUTO) 23 % (22-44); MD NO; MEAN CORPUSCULAR HEMOGLOBIN 30.2 pg (27.0-34.8); MEAN CORPUSCULAR HGB CONC 33.8 g/dL (32.4-35.8); MEAN CORPUSCULAR VOLUME 89.4 fL (80-100); MEAN PLATELET VOLUME 8.5 fL (7.4-10.4); MONOCYTES # (AUTO) 0.68 x10^3/uL (0.2-0.8); MONOCYTES % (AUTO) 7 % (2-9); NEUTROPHILS # (AUTO) 6.23 x10^3/uL (1.8-6.8); NEUTROPHILS % (AUTO) 67 % (42-75); PLATELET COUNT 294 x10^3/uL (130-400); RED BLOOD COUNT 4.48 x10^6/uL (3.82-5.3); RED CELL DISTRIBUTION WIDTH 16.4 % (9.6-15.2)
[2017-10-04 18:24] LABS: INTERNATIONAL NORMALIZED RATIO 0.97 (0.93-1.1)
[2017-10-04 18:27] LABS: ALBUMIN 3.9 g/dL (3.4-5.0); ANION GAP 9 mmol/L (5-15); CHLORIDE 104 mmol/L (98-107)
[2017-10-04 18:31] LABS: ALANINE AMINOTRANSFERASE 34 U/L (12-78); ALKALINE PHOSPHATASE 77 U/L (45-117); BILIRUBIN,TOTAL 0.6 mg/dL (0.2-1.0); CREATININE 1.15 mg/dL (0.55-1.02); TOTAL PROTEIN 7.4 g/dL (6.4-8.2)
== END 2017-10-04 19:40 | disposition home or self-care (01) ==
LOC: ED 19:12
DX: K64.8 Other hemorrhoids (principal); K92.1 Melena; E03.9 Hypothyroidism, unspecified; I48.0 Paroxysmal atrial fibrillation; I25.810 Atherosclerosis of coronary artery bypass graft(s) without angina pectoris; E11.9 Type 2 diabetes mellitus without complications; I11.9 Hypertensive heart disease without heart failure; E78.5 Hyperlipidemia, unspecified; Z85.038 Personal history of other malignant neoplasm of large intestine; Z95.1 Presence of aortocoronary bypass graft; Z90.49 Acquired absence of other specified parts of digestive tract; Z90.710 Acquired absence of both cervix and uterus; Z88.0 Allergy status to penicillin; Z88.5 Allergy status to narcotic agent; Z88.8 Allergy status to other drugs, medicaments and biological substances; Z91.011 Allergy to milk products
CPT/HCPCS: 36415; 80053; 83690; 85025; 85610; 85730; 99284

== ENCOUNTER → 2017-11-07 | Outpatient (CLI) | payer MEDICARE | LOC: CFH 10:28 | PROVIDERS: ATTEND Internal Medicine | DX: Z12.31 Encounter for screening mammogram for malignant neoplasm of breast (principal) | CPT/HCPCS: 77067 ==

== ENCOUNTER 2018-02-24 18:01 | Observation (INO) | payer MEDICARE, OTHER ==
[~2018-02-24] VITALS: Ht 167.6 cm; Wt 104.5 kg
[~2018-02-24 18:01] MED LIST changes: -AMLO10TA2 PO; +AMLO10TA6 PO; -AMLO2.5T PO; +AMLO2.5T3 PO; -LOSA50TA6 PO; +LOSA50TA7 PO; -SIMV80TA3 PO; +SIMV80TA7 PO
[2018-02-24] MEDS ORDERED: ASPIRIN 81 MG TABLET CHEW PO ONE (18:30)
[2018-02-24] MEDS ORDERED: SODIUM CHLORIDE 0.9% 1,000ML IVBOLUS ONE (18:30)
[2018-02-24] MEDS ORDERED: ASPIRIN 81 MG TABLET CHEW ONE (18:41)
[2018-02-24] MEDS ORDERED: DORZ10DR27 OP (18:57)
[2018-02-24 18:58] LABS: BASOPHILS # (AUTO) 0.03 x10^3/uL (0-0.1); BASOPHILS % (AUTO) 0 % (0-1); EOSINOPHILS # (AUTO) 0.06 x10^3/uL (0-0.4); EOSINOPHILS % (AUTO) 1 % (1-7); LYMPHOCYTES # (AUTO) 0.84 x10^3/uL (1-3.4); LYMPHOCYTES % (AUTO) 13 % (22-44); MD NO; MEAN CORPUSCULAR HEMOGLOBIN 30.7 pg (27.0-34.8); MEAN CORPUSCULAR HGB CONC 34.1 g/dL (32.4-35.8); MEAN CORPUSCULAR VOLUME 90.1 fL (80-100); MEAN PLATELET VOLUME 8.5 fL (7.4-10.4); MONOCYTES % (AUTO) 6 % (2-9); NEUTROPHILS # (AUTO) 5.09 x10^3/uL (1.8-6.8); NEUTROPHILS % (AUTO) 79 % (42-75); PLATELET COUNT 232 x10^3/uL (130-400); RED BLOOD COUNT 4.22 x10^6/uL (3.82-5.3); RED CELL DISTRIBUTION WIDTH 15.9 % (9.6-15.2)
[2018-02-24 19:10] LABS: ALBUMIN 3.7 g/dL (3.4-5.0); ANION GAP 9 mmol/L (5-15); CHLORIDE 102 mmol/L (98-107); CREATININE 1.25 mg/dL (0.55-1.02)
[2018-02-24 19:14] LABS: TROPONIN I < 0.015 ng/mL (0.000-0.045)
[2018-02-24 22:00] VITALS: BP 139/86
[2018-02-24 22:24] VITALS: BP 138/62
[2018-02-25] VITALS (8 sets, daily range): BP systolic 119–153; BP diastolic 74–86
[2018-02-25] MEDS: ASPIRIN 81 MG TABLET EC PO SCH ×2 (00:14→20:48)
[2018-02-25] MEDS: INSULIN GLARGINE 100 UNITS/ML, PEN SQ-INSULIN SCH ×2 (00:27→21:01)
[2018-02-25] MEDS ORDERED: DEXTROSE 4 GM TAB.CHEW PO PRN (00:30)
[2018-02-25] MEDS ORDERED: ONDANSETRON ODT 4 MG PO PRN (00:30)
[2018-02-25] MEDS ORDERED: morphine SULFATE 10 MG/ML, 1ML IVPush PRN (00:30)
[2018-02-25] MEDS ORDERED: GLUCAGON 1 MG IM PRN (00:30)
[2018-02-25] MEDS ORDERED: LABETALOL 5MG/ML, 20ML IVPush PRN (00:30)
[2018-02-25] MEDS ORDERED: NITROGLYCERIN 0.4 MG BOTTLE (25 TABS) SL SCH (00:30)
[2018-02-25] MEDS ORDERED: DEXTROSE 50%, 50ML SYRINGE IVPush PRN (00:30)
[2018-02-25] MEDS ORDERED: INSULIN GLARGINE 100 UNITS/ML, PEN SQ-INSULIN ONE (00:30)
[2018-02-25] MEDS ORDERED: ACETAMINOPHEN 325 MG TABLET PO PRN (00:30)
[2018-02-25] MEDS ORDERED: ONDANSETRON 2MG/ML, 2ML IVPush PRN (00:30)
[2018-02-25] MEDS: [UNRECOGNIZED DRUG - MIXTURE] MC SCH ×3 (00:48→15:01)
[2018-02-25] MEDS: SIMVASTATIN 40 MG TABLET PO SCH ×2 (00:50→20:47)
[2018-02-25 01:08] LABS: TROPONIN I < 0.015 ng/mL (0.000-0.045)
[2018-02-25] MEDS: LEVOTHYROXINE 100 MCG TABLET PO SCH (05:51)
[2018-02-25 06:10] LABS: TROPONIN I < 0.015 ng/mL (0.000-0.045)
[2018-02-25] MEDS ORDERED: DORZOLAMIDE HCL OP SCH (09:00)
[2018-02-25] MEDS ORDERED: POTASSIUM CHLORIDE 20 MEQ TAB.ER.PRT PO SCH (09:00)
[2018-02-25] MEDS: DORZOLAMIDE OPHTH 2%, 10ML EACHEYE SCH (09:26)
[2018-02-25] MEDS: LOSARTAN 50MG TABLET PO SCH ×2 (09:29→20:47)
[2018-02-25] MEDS: MAGNESIUM OXIDE 400 MG TABLET PO SCH ×2 (09:29→20:46)
[2018-02-25] MEDS: CLOPIDOGREL 75 MG TABLET PO SCH (09:30)
[2018-02-25] MEDS: SOTALOL 80MG TABLET PO SCH ×2 (09:31→20:47)
[2018-02-25] MEDS: ISOSORBIDE MONONITRATE ER 60 MG TABLET PO SCH (09:32)
[2018-02-25] MEDS: SODIUM CHLORIDE FLUSH 10ML SYR IVF SCH ×2 (09:35→20:46)
[2018-02-25] MEDS: INSULIN LISPRO 100 UNITS/ML, PEN SQ-INSULIN SCH ×3 (11:00→20:58)
[2018-02-25] MEDS: SODIUM CHLORIDE 0.9% 1,000 ML IV SCH (11:41)
[2018-02-25 11:55] LABS: CALCIUM 8.9 mg/dL (8.5-10.1); CHLORIDE 108 mmol/L (98-107)
[2018-02-25 11:58] LABS: ANION GAP 10 mmol/L (5-15)
[2018-02-25 12:39] LABS: CULTURE INDICATED? YES; MICROSCOPIC INDICATED
[2018-02-25] MEDS: POTASSIUM CHLORIDE 20 MEQ TAB.ER.PRT PO SCH (15:16)
[2018-02-26] VITALS (7 sets, daily range): BP systolic 110–136; BP diastolic 72–86
[2018-02-26] MEDS: SODIUM CHLORIDE 0.9% 1,000 ML IV SCH ×2 (01:55→15:23)
[2018-02-26] MEDS: LEVOTHYROXINE 100 MCG TABLET PO SCH (06:43)
[2018-02-26] MEDS: INSULIN LISPRO 100 UNITS/ML, PEN SQ-INSULIN SCH ×4 (07:00→20:39)
[2018-02-26] MEDS: SODIUM CHLORIDE FLUSH 10ML SYR IVF SCH ×2 (09:00→20:39)
[2018-02-26] MEDS: DORZOLAMIDE OPHTH 2%, 10ML EACHEYE SCH (10:12)
[2018-02-26] MEDS: POTASSIUM CHLORIDE 20 MEQ TAB.ER.PRT PO SCH (10:13)
[2018-02-26] MEDS: CLOPIDOGREL 75 MG TABLET PO SCH (10:13)
[2018-02-26] MEDS: SOTALOL 80MG TABLET PO SCH ×2 (10:13→20:38)
[2018-02-26] MEDS: MAGNESIUM OXIDE 400 MG TABLET PO SCH ×2 (10:13→20:38)
[2018-02-26] MEDS: LOSARTAN 50MG TABLET PO SCH ×2 (10:14→20:39)
[2018-02-26] MEDS: ISOSORBIDE MONONITRATE ER 60 MG TABLET PO SCH (13:25)
[2018-02-26] MEDS: INSULIN GLARGINE 100 UNITS/ML, PEN SQ-INSULIN SCH (20:38)
[2018-02-26] MEDS: ASPIRIN 81 MG TABLET EC PO SCH (20:38)
[2018-02-26] MEDS: SIMVASTATIN 40 MG TABLET PO SCH (20:39)
[2018-02-27 01:01] VITALS: BP 108/65
[2018-02-27] MEDS: SODIUM CHLORIDE 0.9% 1,000 ML IV SCH (03:05)
[2018-02-27] MEDS: LEVOTHYROXINE 100 MCG TABLET PO SCH (05:38)
[2018-02-27] MEDS: INSULIN LISPRO 100 UNITS/ML, PEN SQ-INSULIN SCH ×2 (07:00→11:00)
[2018-02-27 07:36] VITALS: BP 120/80
[2018-02-27] MEDS: LOSARTAN 50MG TABLET PO SCH (07:47)
[2018-02-27] MEDS: ISOSORBIDE MONONITRATE ER 60 MG TABLET PO SCH (07:47)
[2018-02-27] MEDS: SOTALOL 80MG TABLET PO SCH (07:47)
[2018-02-27] MEDS: CLOPIDOGREL 75 MG TABLET PO SCH (07:48)
[2018-02-27] MEDS: DORZOLAMIDE OPHTH 2%, 10ML EACHEYE SCH (07:48)
[2018-02-27] MEDS: POTASSIUM CHLORIDE 20 MEQ TAB.ER.PRT PO SCH (07:48)
[2018-02-27] MEDS: MAGNESIUM OXIDE 400 MG TABLET PO SCH (07:48)
[2018-02-27] MEDS: SODIUM CHLORIDE FLUSH 10ML SYR IVF SCH (07:50)
[2018-02-27 12:39] VITALS: BP 132/84
== END 2018-02-27 14:56 | disposition home or self-care (01) ==
LOC: ED 20:39 → OBSVTOIN 21:31 → 5SO 21:31 → INTOOBSV 21:31 → DCLOUNGE 02-27 14:37
PROVIDERS: ADMIT Internal Medicine; ATTEND Internal Medicine
DX: R07.9 Chest pain, unspecified (principal); R55 Syncope and collapse; I25.10 Atherosclerotic heart disease of native coronary artery without angina pectoris; I25.2 Old myocardial infarction; I12.9 Hypertensive chronic kidney disease with stage 1 through stage 4 chronic kidney disease, or unspecified chronic kidney disease; N18.9 Chronic kidney disease, unspecified; E03.9 Hypothyroidism, unspecified; E11.22 Type 2 diabetes mellitus with diabetic chronic kidney disease; E11.65 Type 2 diabetes mellitus with hyperglycemia; E66.9 Obesity, unspecified; E78.5 Hyperlipidemia, unspecified; I08.1 Rheumatic disorders of both mitral and tricuspid valves; I35.0 Nonrheumatic aortic (valve) stenosis; I48.0 Paroxysmal atrial fibrillation; Z79.4 Long term (current) use of insulin; Z85.038 Personal history of other malignant neoplasm of large intestine; Z88.0 Allergy status to penicillin; Z88.5 Allergy status to narcotic agent; Z90.710 Acquired absence of both cervix and uterus; Z95.0 Presence of cardiac pacemaker; Z95.5 Presence of coronary angioplasty implant and graft; Z95.1 Presence of aortocoronary bypass graft; Z90.49 Acquired absence of other specified parts of digestive tract
CPT/HCPCS: 36415; 71045; 80048; 81001; 82040; 82962; 83036; 83880; 84443; 84484; 85025; 87086; 93005; 93306; 96360; 96361; 96372; 99285; G0378; J1815; J7030

== ENCOUNTER 2018-07-16 02:13 | Observation (INO) | payer MEDICARE, OTHER ==
[~2018-07-16] VITALS: Ht 167.6 cm; Wt 102.0 kg
[~2018-07-16 02:13] MED LIST changes: -AMLO10TA6 PO; +AMLO10TA8 PO; -AMLO2.5T3 PO; +AMLO2.5T5 PO; -ASPI-621 PO; +ASPI81TA45 PO; +DORZ10DR27 OP; +LOSA50TA14 PO; -LOSA50TA7 PO; +SIMV80TA18 PO; -SIMV80TA7 PO
[2018-07-16] MEDS ORDERED: TIMO1DRO2 OP (02:31)
[2018-07-16] MEDS ORDERED: ATOR20TA PO (02:31)
[2018-07-16 02:47] LABS: BASOPHILS # (AUTO) 0.02 x10^3/uL (0-0.1); BASOPHILS % (AUTO) 0 % (0-1); EOSINOPHILS # (AUTO) 0.19 x10^3/uL (0-0.4); EOSINOPHILS % (AUTO) 2 % (1-7); LYMPHOCYTES # (AUTO) 1.85 x10^3/uL (1-3.4); LYMPHOCYTES % (AUTO) 23 % (22-44); MD NO; MEAN CORPUSCULAR HEMOGLOBIN 29.8 pg (27.0-34.8); MEAN CORPUSCULAR HGB CONC 33.6 g/dL (32.4-35.8); MEAN CORPUSCULAR VOLUME 88.8 fL (80-100); MONOCYTES # (AUTO) 0.72 x10^3/uL (0.2-0.8); MONOCYTES % (AUTO) 9 % (2-9); NEUTROPHILS # (AUTO) 5.37 x10^3/uL (1.8-6.8); NEUTROPHILS % (AUTO) 66 % (42-75); PLATELET COUNT 205 x10^3/uL (130-400); RED BLOOD COUNT 4.47 x10^6/uL (3.82-5.3); RED CELL DISTRIBUTION WIDTH 16.3 % (9.6-15.2)
--- NOTE | 2018-07-16 02:52 | NUR ---
PT HERE FOR PALPITATIONS AND HTN. VSS. PT HAS HX OF AFIB AND TX. PIV PLACED BY [facility]. PT RECIEVED 324 ASA WITH NO CHANGE. LAB AT BEDSIDE. CALL LIGHT IN REACH
[2018-07-16 02:59] LABS: ALANINE AMINOTRANSFERASE 15 U/L (12-78); ALBUMIN 3.6 g/dL (3.4-5.0); ANION GAP 9 mmol/L (5-15); CALCIUM 8.9 mg/dL (8.5-10.1); CHLORIDE 108 mmol/L (98-107); CREATININE 0.92 mg/dL (0.55-1.02)
[2018-07-16 03:04] LABS: ALKALINE PHOSPHATASE 82 U/L (45-117); BILIRUBIN,TOTAL 0.6 mg/dL (0.2-1.0); FREE T4 (FREE THYROXINE) 1.27 ng/dL (0.76-1.46); TOTAL PROTEIN 6.4 g/dL (6.4-8.2); TROPONIN I < 0.015 ng/mL (0.000-0.045)
--- NOTE | 2018-07-16 04:16 | NUR ---
ADMITTING MD AT BEDSIDE.
[2018-07-16] MEDS ORDERED: ACETAMINOPHEN 325 MG TABLET PO PRN (05:00)
[2018-07-16] MEDS ORDERED: CHOLECALCIFEROL 1,000 UNIT TABLET PO SCH (05:00)
[2018-07-16] MEDS ORDERED: NITROGLYCERIN 0.4 MG/SPRAY SL PRN (05:00)
[2018-07-16] MEDS ORDERED: NITROGLYCERIN 0.4 MG BOTTLE (25 TABS) SL PRN (05:00)
[2018-07-16 05:08] VITALS: BP 158/98
[2018-07-16 05:31] LABS: CHOLESTEROL, TOTAL 168 mg/dL (140-239); TRIGLYCERIDES 172 mg/dL (50-200); VLDL CHOLESTEROL 34 mg/dL (0-25)
[2018-07-16 05:33] LABS: CHOL/HDL RATIO 4.7; HDL CHOL % 21 % (28-40); HDL CHOLESTEROL (DIRECT) 36 mg/dL (40-60); LDL CHOLESTEROL,CALCULATED 98 mg/dL (54-169); LDL/HDL RATIO 2.7 (0.5-3.0); TROPONIN I < 0.015 ng/mL (0.000-0.045)
[2018-07-16] MEDS: LEVOTHYROXINE 100 MCG TABLET PO SCH (05:43)
[2018-07-16] MEDS: ENOXAPARIN 40 MG/0.4 ML SQ SCH (05:43)
[2018-07-16] MEDS ORDERED: ASPIRIN 81 MG TABLET EC PO SCH ×2 (06:00→21:00)
[2018-07-16] MEDS: INSULIN LISPRO 100 UNITS/ML, PEN SQ-INSULIN SCH ×4 (07:00→21:00)
[2018-07-16 07:56] VITALS: BP 145/72
[2018-07-16 08:10] LABS: TROPONIN I < 0.015 ng/mL (0.000-0.045)
[2018-07-16] MEDS: B6 PO SCH (09:00)
[2018-07-16] MEDS: LEVOMEFOLATE CALCIUM PO SCH (09:00)
[2018-07-16] MEDS: SODIUM CHLORIDE FLUSH 10ML SYR IVF SCH ×2 (09:00→21:13)
[2018-07-16] MEDS: B12 PO SCH (09:00)
[2018-07-16] MEDS: SOTALOL 80MG TABLET PO SCH ×2 (09:06→21:16)
[2018-07-16] MEDS: FOLIC ACID 1 MG TABLET PO SCH (09:06)
[2018-07-16] MEDS: POTASSIUM CHLORIDE 20 MEQ TAB.ER.PRT PO SCH (09:06)
[2018-07-16] MEDS: CLOPIDOGREL 75 MG TABLET PO SCH (09:06)
[2018-07-16] MEDS: metFORMIN 500 MG TABLET PO SCH ×2 (09:06→17:44)
[2018-07-16] MEDS: ISOSORBIDE MONONITRATE ER 60 MG TABLET PO SCH (09:07)
[2018-07-16] MEDS: LOSARTAN 50MG TABLET PO SCH ×2 (09:07→21:16)
[2018-07-16] MEDS: MAGNESIUM OXIDE 400 MG TABLET PO SCH ×2 (09:07→21:18)
[2018-07-16] MEDS: TIMOLOL OPHTH 0.5%, 5ML EACHEYE SCH ×2 (09:13→21:13)
[2018-07-16 11:48] LABS: TROPONIN I < 0.015 ng/mL (0.000-0.045)
[2018-07-16 13:32] VITALS: BP 147/85
[2018-07-16 19:13] VITALS: BP 160/89
[2018-07-16] MEDS ORDERED: ATORVASTATIN 20 MG TABLET PO SCH (21:00)
[2018-07-17 01:11] VITALS: BP 137/83
[2018-07-17] MEDS: ENOXAPARIN 40 MG/0.4 ML SQ SCH (05:20)
[2018-07-17] MEDS: LEVOTHYROXINE 100 MCG TABLET PO SCH (05:21)
[2018-07-17 05:32] LABS: MEAN CORPUSCULAR HEMOGLOBIN 29.3 pg (27.0-34.8); MEAN CORPUSCULAR HGB CONC 32.9 g/dL (32.4-35.8); MEAN CORPUSCULAR VOLUME 88.9 fL (80-100); MEAN PLATELET VOLUME 9.3 fL (7.4-10.4); PLATELET COUNT 178 x10^3/uL (130-400); RED BLOOD COUNT 4.38 x10^6/uL (3.82-5.3); RED CELL DISTRIBUTION WIDTH 16.9 % (9.6-15.2)
[2018-07-17 05:38] LABS: ANION GAP 7 mmol/L (5-15); CHLORIDE 109 mmol/L (98-107); CREATININE 0.81 mg/dL (0.55-1.02)
[2018-07-17 06:52] VITALS: BP 147/88
[2018-07-17] MEDS: INSULIN LISPRO 100 UNITS/ML, PEN SQ-INSULIN SCH ×2 (07:00→11:00)
[2018-07-17] MEDS: B12 PO SCH (07:55)
[2018-07-17] MEDS: B6 PO SCH (07:55)
[2018-07-17] MEDS: LEVOMEFOLATE CALCIUM PO SCH (07:55)
[2018-07-17] MEDS: metFORMIN 500 MG TABLET PO SCH (08:00)
[2018-07-17] MEDS: SODIUM CHLORIDE FLUSH 10ML SYR IVF SCH (09:00)
[2018-07-17 13:17] VITALS: BP 150/88
[2018-07-17] MEDS: LOSARTAN 50MG TABLET PO SCH (13:20)
[2018-07-17] MEDS: CLOPIDOGREL 75 MG TABLET PO SCH (13:20)
[2018-07-17] MEDS: POTASSIUM CHLORIDE 20 MEQ TAB.ER.PRT PO SCH (13:20)
[2018-07-17] MEDS: SOTALOL 80MG TABLET PO SCH (13:20)
[2018-07-17] MEDS: MAGNESIUM OXIDE 400 MG TABLET PO SCH (13:21)
[2018-07-17] MEDS: FOLIC ACID 1 MG TABLET PO SCH (13:23)
[2018-07-17] MEDS: ISOSORBIDE MONONITRATE ER 60 MG TABLET PO SCH (13:37)
== END 2018-07-17 15:35 | disposition home or self-care (01) ==
LOC: ED 03:19 → INTOOBSV 04:08 → EDIP 04:08 → 5SO 04:59 → DCLOUNGE 07-17 14:50
PROVIDERS: ADMIT Internal Medicine; ATTEND Internal Medicine
DX: R07.89 Other chest pain (principal); E03.9 Hypothyroidism, unspecified; E11.22 Type 2 diabetes mellitus with diabetic chronic kidney disease; I12.9 Hypertensive chronic kidney disease with stage 1 through stage 4 chronic kidney disease, or unspecified chronic kidney disease; E78.5 Hyperlipidemia, unspecified; N18.9 Chronic kidney disease, unspecified; I25.10 Atherosclerotic heart disease of native coronary artery without angina pectoris; I25.2 Old myocardial infarction; I48.0 Paroxysmal atrial fibrillation; Z79.4 Long term (current) use of insulin; Z95.0 Presence of cardiac pacemaker; Z95.1 Presence of aortocoronary bypass graft; Z87.891 Personal history of nicotine dependence
CPT/HCPCS: 36415; 80048; 80053; 80061; 82962; 83735; 84439; 84443; 84484; 85025; 85027; 93005; 96372; 99284; G0378; J1650; J1815

== ENCOUNTER 2018-07-17 17:39 | Emergency (ER) | payer MEDICARE, OTHER ==
[~2018-07-17] VITALS: Ht 167.6 cm; Wt 45.5 kg
[~2018-07-17 17:39] MED LIST changes: +ATOR20TA PO; +TIMO1DRO2 OP
[2018-07-17] MEDS ORDERED: OXYMETAZOLINE NASAL SPRAY 0.05%, 15ML ONE (18:06)
[2018-07-17] MEDS ORDERED: LIDOCAINE 1%-EPI 1:100K, 20ML ONE (18:06)
[2018-07-17] MEDS ORDERED: ONDANSETRON 2MG/ML, 2ML ONE (19:14)
[2018-07-17 19:15] LABS: ALBUMIN 3.7 g/dL (3.4-5.0); ANION GAP 8 mmol/L (5-15); CALCIUM 9.2 mg/dL (8.5-10.1); CHLORIDE 107 mmol/L (98-107); CREATININE 0.99 mg/dL (0.55-1.02)
--- NOTE | 2018-07-17 19:21 | NUR ---
LATE ENTRY 1909 PT W/ C/O +NAUSEA +DIAPHORETIC. DR HERNANDEZ UPDATED. ORDER REC'D FOR PIV AND LABS. PIV INSERTED. PT CONT TO FEEL NAUSEA. DR. WHEELER AT BEDSIDE. PT BP 73/36, ORDER REC'D FOR NS BOLUS. IVF STARTED AND INFUSING W/O DIFFICULTY. HOB FLAT AND LEGS RAISED. SP02 85% 02 5L OXY MASK PLACED WITH EFFECT.
[2018-07-17] MEDS ORDERED: ONDANSETRON 2MG/ML, 2ML IVPush ONE (19:30)
[2018-07-17] MEDS ORDERED: LIDOCAINE 1%-EPI 1:100K, 20ML INFIL ONE (19:30)
[2018-07-17] MEDS ORDERED: SODIUM CHLORIDE 0.9% 1,000ML IVBOLUS ONE (19:30)
[2018-07-17] MEDS ORDERED: OXYMETAZOLINE NASAL SPRAY 0.05%, 15ML NAS ONE (19:30)
[2018-07-17 19:57] LABS: BASOPHILS # (AUTO) 0.04 x10^3/uL (0-0.1); BASOPHILS % (AUTO) 0 % (0-1); EOSINOPHILS # (AUTO) 0.16 x10^3/uL (0-0.4); EOSINOPHILS % (AUTO) 2 % (1-7); LYMPHOCYTES # (AUTO) 2.18 x10^3/uL (1-3.4); LYMPHOCYTES % (AUTO) 22 % (22-44); MD SCAN; MEAN CORPUSCULAR HEMOGLOBIN 29.6 pg (27.0-34.8); MEAN CORPUSCULAR HGB CONC 33.4 g/dL (32.4-35.8); MEAN CORPUSCULAR VOLUME 88.7 fL (80-100); MEAN PLATELET VOLUME 9.3 fL (7.4-10.4); MONOCYTES # (AUTO) 0.72 x10^3/uL (0.2-0.8); MONOCYTES % (AUTO) 7 % (2-9); NEUTROPHILS # (AUTO) 6.67 x10^3/uL (1.8-6.8); NEUTROPHILS % (AUTO) 68 % (42-75); PLATELET COUNT 268 x10^3/uL (130-400); RED BLOOD COUNT 4.61 x10^6/uL (3.82-5.3); RED CELL DISTRIBUTION WIDTH 16.5 % (9.6-15.2)
--- NOTE | 2018-07-17 20:33 | NUR ---
DR HERNANDEZ AT BEDSIDE. PT VSS, DENIES NAUSEA
--- NOTE | 2018-07-17 21:14 | NUR ---
PT TOLERATES AMBULATION IN THE ER STEVENS VSS STABLE AFTER AMBUALTION PT STATED " I AM STILL LITTLE DIZZY AFTER WALK ' NONOSE BLEEDING NOW
--- NOTE | 2018-07-17 21:51 | NUR ---
GIVEN ALL DC INSTRUCTION PT UNDERSTOOD PT AMBUALTED TO CHECK OUT AFTER GIVEN ALL DC INSTRUCION GIVEN TAXI EDWARD
[2018-07-17 21:52] VITALS: BP 139/72
== END 2018-07-17 21:54 | disposition home or self-care (01) ==
LOC: ED 19:31
DX: R04.0 Epistaxis (principal); R55 Syncope and collapse; I95.9 Hypotension, unspecified; E03.9 Hypothyroidism, unspecified; I48.91 Unspecified atrial fibrillation; I25.2 Old myocardial infarction; I25.10 Atherosclerotic heart disease of native coronary artery without angina pectoris; E78.5 Hyperlipidemia, unspecified; I11.9 Hypertensive heart disease without heart failure; E11.9 Type 2 diabetes mellitus without complications; Z90.49 Acquired absence of other specified parts of digestive tract; Z95.0 Presence of cardiac pacemaker; Z95.1 Presence of aortocoronary bypass graft; Z90.710 Acquired absence of both cervix and uterus; Z85.038 Personal history of other malignant neoplasm of large intestine
CPT/HCPCS: 36415; 80048; 82040; 85025; 93005; 96361; 96374; 99284; J2405; J3490; J7030

== ENCOUNTER → 2018-09-23 | Outpatient (CLI) | payer MEDICARE, OTHER | END | disposition home or self-care (01) | LOC: CFH 11:55 | PROVIDERS: ATTEND Internal Medicine | DX: R05 Cough (principal); R06.02 Shortness of breath; R53.83 Other fatigue | CPT/HCPCS: 71046 ==

== ENCOUNTER 2018-09-27 13:24 | Emergency (ER) | payer MEDICARE, OTHER ==
[~2018-09-27] VITALS: Ht 165.1 cm; Wt 99.8 kg
[2018-09-27 14:18] LABS: BASOPHILS # (AUTO) 0.06 x10^3/uL (0-0.1); BASOPHILS % (AUTO) 1 % (0-1); EOSINOPHILS # (AUTO) 0.16 x10^3/uL (0-0.4); EOSINOPHILS % (AUTO) 2 % (1-7); LYMPHOCYTES # (AUTO) 2.13 x10^3/uL (1-3.4); LYMPHOCYTES % (AUTO) 25 % (22-44); MD NO; MEAN CORPUSCULAR HEMOGLOBIN 29.8 pg (27.0-34.8); MEAN CORPUSCULAR HGB CONC 33.4 g/dL (32.4-35.8); MEAN CORPUSCULAR VOLUME 89.2 fL (80-100); MEAN PLATELET VOLUME 8.6 fL (7.4-10.4); MONOCYTES # (AUTO) 0.58 x10^3/uL (0.2-0.8); MONOCYTES % (AUTO) 7 % (2-9); NEUTROPHILS # (AUTO) 5.53 x10^3/uL (1.8-6.8); NEUTROPHILS % (AUTO) 65 % (42-75); PLATELET COUNT 286 x10^3/uL (130-400); RED BLOOD COUNT 4.43 x10^6/uL (3.82-5.3); RED CELL DISTRIBUTION WIDTH 16.7 % (9.6-15.2)
[2018-09-27 14:28] LABS: ALBUMIN 3.8 g/dL (3.4-5.0); ANION GAP 7 mmol/L (5-15); CHLORIDE 110 mmol/L (98-107)
[2018-09-27 15:15] VITALS: BP 125/63
--- NOTE | 2018-09-27 15:17 | NUR ---
Dr. Cooley at bedside to evaluate pt and discuss POC. Pt states has completed multiple courses of abx for PNA and is not feeling better. Pt speaking in full sentences, resp even and unlabored, lungs CTA. Continuous oxygen and BP monitors applied, all safety measures observed.
== END 2018-09-27 15:39 | disposition home or self-care (01) ==
LOC: ED 15:00
DX: J15.9 Unspecified bacterial pneumonia (principal); I10 Essential (primary) hypertension; E11.9 Type 2 diabetes mellitus without complications; I25.10 Atherosclerotic heart disease of native coronary artery without angina pectoris; I25.2 Old myocardial infarction; I48.91 Unspecified atrial fibrillation; E03.9 Hypothyroidism, unspecified; Z90.49 Acquired absence of other specified parts of digestive tract; Z90.710 Acquired absence of both cervix and uterus; Z95.1 Presence of aortocoronary bypass graft; Z95.0 Presence of cardiac pacemaker
CPT/HCPCS: 36415; 71046; 80048; 82040; 85025; 93005; 99284

== ENCOUNTER → 2018-10-04 | Outpatient (CLI) | payer MEDICARE, OTHER | END | disposition home or self-care (01) | LOC: CFH 10:47 | PROVIDERS: ATTEND Internal Medicine | DX: J18.9 Pneumonia, unspecified organism (principal); Z88.0 Allergy status to penicillin; Z88.8 Allergy status to other drugs, medicaments and biological substances | CPT/HCPCS: 71046 ==

== ENCOUNTER 2019-06-26 01:00 | Emergency (ER) | payer MEDICARE, OTHER ==
[~2019-06-26] VITALS: Ht 167.6 cm; Wt 98.9 kg
[~2019-06-26 01:00] MED LIST changes: +ATOR40TA78 PO; +FLUT15.845 NAS; -FLUT15.88 NAS; +LOSARTAN PO; +VITAMIN B6 PO
[2019-06-26] MEDS ORDERED: ACETAMINOPHEN 500 MG TABLET PO ONE (01:30)
[2019-06-26] MEDS ORDERED: NITROGLYCERIN 0.4 MG BOTTLE (25 TABS) SL PRN (01:30)
[2019-06-26] MEDS ORDERED: NITROGLYCERIN SINGLE TAB 0.4 MG SL ONE (01:32)
[2019-06-26] MEDS ORDERED: ACETAMINOPHEN 500 MG TABLET ONE (01:32)
--- NOTE | 2019-06-26 01:52 | NUR ---
Pt alert and oriented, sitting up on gurney. Pt reports hx of heart attacks that don't present in the typical manner. Pt reports left arm heaviness/pressure and increased BP tonight. Pt in gown and on full monitors. Pt medicated per AUG. Call light within reach.
[2019-06-26 01:56] LABS: BASOPHILS # (AUTO) 0.02 x10^3/uL (0-0.1); BASOPHILS % (AUTO) 0 % (0-1); EOSINOPHILS # (AUTO) 0.17 x10^3/uL (0-0.4); EOSINOPHILS % (AUTO) 2 % (1-7); LYMPHOCYTES # (AUTO) 2.17 x10^3/uL (1-3.4); LYMPHOCYTES % (AUTO) 30 % (22-44); MD NO; MEAN CORPUSCULAR HEMOGLOBIN 30.4 pg (27.0-34.8); MEAN CORPUSCULAR HGB CONC 33.5 g/dL (32.4-35.8); MEAN CORPUSCULAR VOLUME 90.9 fL (80-100); MEAN PLATELET VOLUME 9.3 fL (7.4-10.4); MONOCYTES # (AUTO) 0.53 x10^3/uL (0.2-0.8); MONOCYTES % (AUTO) 7 % (2-9); NEUTROPHILS # (AUTO) 4.46 x10^3/uL (1.8-6.8); NEUTROPHILS % (AUTO) 61 % (42-75); PLATELET COUNT 211 x10^3/uL (130-400); RED BLOOD COUNT 4.38 x10^6/uL (3.82-5.3); RED CELL DISTRIBUTION WIDTH 16.2 % (9.6-15.2)
[2019-06-26 02:01] LABS: ALANINE AMINOTRANSFERASE 17 U/L (12-78); ALBUMIN 3.7 g/dL (3.4-5.0); ANION GAP 6 mmol/L (5-15); CALCIUM 9.1 mg/dL (8.5-10.1); CHLORIDE 108 mmol/L (98-107); CREATININE 0.96 mg/dL (0.55-1.02)
[2019-06-26 02:05] LABS: ALKALINE PHOSPHATASE 80 U/L (45-117); BILIRUBIN,TOTAL 0.7 mg/dL (0.2-1.0); TOTAL PROTEIN 6.6 g/dL (6.4-8.2); TROPONIN I < 0.015 ng/mL (0.000-0.045)
--- NOTE | 2019-06-26 02:12 | NUR ---
Report to ELIJAH Carrillo
--- NOTE | 2019-06-26 02:15 | NUR ---
REPORT RECEIVED FROM ELIJAH BUTCHER. PT RESTING ON GURNEY IN NAD. STATES SHE DID NOT HAVE ANY RELIEF FROM THE NTG TAB ADMINISTERED. DENIES ANY CHEST PAIN, C/O LEFT ARM PAIN. PT AMBULATORY TO RESTROOM, STEADY GAIT NOTED. NO SOB NOTED. CHART UP FOR RECHECK
--- NOTE | 2019-06-26 02:17 | NUR ---
PT BACK TO BED WITHOUT DIFFICULTY. PROVIDED WITH WARM BLANKETS AND HEATER, ALSO PROVIDED WITH A PILLOW. ALL VITALS REMAIN STABLE. A REPEAT TROP WILL BE DONE AND PT MONITORED UNTIL THEN. PT DENIES ANY NEEDS AT THIS TIME.
[2019-06-26] MEDS ORDERED: IBUPROFEN 600 MG TABLET PO ONE (03:00)
--- NOTE | 2019-06-26 03:06 | NUR ---
PT SLEEPING, RESPIRATIONS EVEN AND UNLABORED. ALL VITALS STABLE. NSR ON THE MONITOR WITH NO ST CHANGES OR ST CHANGES PRESENT.
--- NOTE | 2019-06-26 04:32 | NUR ---
LAB AT BEDSIDE DRAWING TROPONIN
[2019-06-26 05:10] LABS: TROPONIN I < 0.015 ng/mL (0.000-0.045)
[2019-06-26 05:31] VITALS: BP 147/79
--- NOTE | 2019-06-26 05:31 | NUR ---
Patient/Caregiver given discharge instructions and they have confirmed that they understand the instructions. Patient ambulatory with steady gait.
== END 2019-06-26 05:33 | disposition home or self-care (01) ==
LOC: ED 01:41
DX: M25.512 Pain in left shoulder (principal); E11.9 Type 2 diabetes mellitus without complications; E78.5 Hyperlipidemia, unspecified; I25.10 Atherosclerotic heart disease of native coronary artery without angina pectoris; I48.91 Unspecified atrial fibrillation; I11.9 Hypertensive heart disease without heart failure; Z90.710 Acquired absence of both cervix and uterus; Z90.49 Acquired absence of other specified parts of digestive tract; Z86.39 Personal history of other endocrine, nutritional and metabolic disease
CPT/HCPCS: 36415; 71045; 80053; 84484; 85025; 93005; 99284

== ENCOUNTER 2019-08-12 07:45 | Emergency (ER) | payer MEDICARE, OTHER ==
[~2019-08-12] VITALS: Ht 167.6 cm; Wt 95.0 kg
[~2019-08-12 07:45] MED LIST changes: +SIMV40TA20 PO; -SIMV40TA3 PO
[2019-08-12] MEDS ORDERED: LATA2.5D3 EACHEYE (08:03)
[2019-08-12] MEDS ORDERED: LOSA50TA14 PO (08:06)
--- NOTE | 2019-08-12 08:07 | NUR ---
PT BIB EMS FOR EPISTAXIS THAT BEGAN AT APPROX [phone] WHEN SHE GOT UP TO USE THE BATHROOM. PT STATES SHE'S ON PLAVIX.
[2019-08-12] MEDS ORDERED: COCAINE TOPICAL SOLN 4%, 4ML ONE (08:35)
--- NOTE | 2019-08-12 08:45 | NUR ---
R NARE PACKED WITH COCAINE-SOAKED COTTON BY DR. LOPEZ AND DR. CARRIZALES. PT TOLDERATED WELL. NO APPARENT BLEEDING AT THIS TIME. WILL CONTINUE TO MONITOR.
[2019-08-12 08:51] VITALS: BP 136/47
--- NOTE | 2019-08-12 09:35 | NUR ---
CHECKED ON PT. PT WITH MINIMAL CLEAR BLOOD TINGED DRAINAGE. PT CONCERNED WANTING THE MD TO KNOW. DR LOPEZ UPDATED, SHE IS TO GO SEE PT
--- NOTE | 2019-08-12 11:03 | NUR ---
Patient given discharge instructions and they have confirmed that they understand the instructions. Patient ambulatory with steady gait.
== END 2019-08-12 11:05 | disposition home or self-care (01) ==
LOC: ED 10:59
DX: R04.0 Epistaxis (principal); E11.22 Type 2 diabetes mellitus with diabetic chronic kidney disease; N18.9 Chronic kidney disease, unspecified; I25.2 Old myocardial infarction; I25.10 Atherosclerotic heart disease of native coronary artery without angina pectoris; E03.9 Hypothyroidism, unspecified; E78.5 Hyperlipidemia, unspecified; Z95.0 Presence of cardiac pacemaker; Z85.038 Personal history of other malignant neoplasm of large intestine
CPT/HCPCS: 30901; 99284; 99285

== ENCOUNTER 2019-08-29 04:45 | Emergency (ER) | payer MEDICARE, OTHER ==
[~2019-08-29] VITALS: Ht 167.6 cm; Wt 96.8 kg
[~2019-08-29 04:45] MED LIST changes: +LATA2.5D3 EACHEYE
[2019-08-29] MEDS ORDERED: LIDOCAINE 1%-EPI 1:100K, 20ML ONE (05:07)
--- NOTE | 2019-08-29 05:19 | NUR ---
ERP IN ROOM TO EVAL PT, COTTONBALL WITH EPI APPLIED BY LAURI HTOMAS. PT TOLERATED WELL.
--- NOTE | 2019-08-29 06:48 | NUR ---
REPORT TO ELIJAH MELVIN.
--- NOTE | 2019-08-29 07:37 | NUR ---
LAURI GILL AT BEDSIDE TO DISCUSS POC
[2019-08-29 08:13] VITALS: BP 166/81
--- NOTE | 2019-08-29 08:13 | NUR ---
pt resting in bed, call light in reach. bleeding controlled.
--- NOTE | 2019-08-29 09:14 | NUR ---
DISCHARGE INSTRUCTIONS REVIEWED
== END 2019-08-29 09:21 | disposition home or self-care (01) ==
LOC: ED 06:04
DX: R04.0 Epistaxis (principal)
CPT/HCPCS: 30901; 99284

== ENCOUNTER 2019-10-28 17:48 | Emergency (ER) | payer MEDICARE ==
[~2019-10-28] VITALS: Ht 167.6 cm; Wt 97.5 kg
--- NOTE | 2019-10-28 18:40 | NUR ---
PT AMBULATORY TO ROOM. ERP TO BEDSIDE. PT TALKING WITH ERP, NO SIGNS OF DISTRESS.
--- NOTE | 2019-10-28 18:56 | NUR ---
REPORT GIVEN TO ELIJAH FOX.
[2019-10-28 19:54] VITALS: BP 177/82
== END 2019-10-28 19:56 | disposition home or self-care (01) ==
LOC: ED 19:35
DX: K08.89 Other specified disorders of teeth and supporting structures (principal); I48.91 Unspecified atrial fibrillation; E11.9 Type 2 diabetes mellitus without complications; I25.10 Atherosclerotic heart disease of native coronary artery without angina pectoris; E78.5 Hyperlipidemia, unspecified; E03.9 Hypothyroidism, unspecified; I25.2 Old myocardial infarction; Z85.038 Personal history of other malignant neoplasm of large intestine; Z86.39 Personal history of other endocrine, nutritional and metabolic disease; Z90.49 Acquired absence of other specified parts of digestive tract; Z90.710 Acquired absence of both cervix and uterus; Z95.0 Presence of cardiac pacemaker
CPT/HCPCS: 70100; 93005; 99283

== ENCOUNTER 2020-03-24 17:04 | Emergency (ER) | payer MEDICARE, OTHER ==
[~2020-03-24 17:04] MED LIST changes: +HYDR12.575 PO; +METO50TA6 PO
[2020-03-24 17:05] VITALS: BP 113/56
--- NOTE | 2020-03-24 17:16 | NUR ---
PT BIBA. PER EMS REPORT PT HAD A MECHANICAL GLF AND IS ON PLAVIX BUT HAD NO LOC OR HEAD STRIKE. PT IS REPORTING PAIN TO LEFT FOREARM , L RING FINGER, AND BILATERAL KNEES. PT HAS AN ABRASION ON HER LEFT FOREARM AND HAS BILATERAL ABRASIONS TO KNEE CAPS. PT DENIES LOC OR HITTING HER HEAD. PT STATES SHE TRIPPED ON LOOSE CONCRETE.
[2020-03-24] MEDS ORDERED: DIPH,PERTUSS(ACELL),TET VAC/PF 0.5 ML IM-VACC ONE ×2 (17:30→17:59)
[2020-03-24] MEDS ORDERED: NEOSPORIN OINT. PKT 1 PACKET ONE (18:31)
== END 2020-03-24 19:02 ==
LOC: ED 18:55
DX: S62.665A Nondisplaced fracture of distal phalanx of left ring finger, initial encounter for closed fracture (principal); S80.02XA Contusion of left knee, initial encounter; S80.01XA Contusion of right knee, initial encounter; E11.9 Type 2 diabetes mellitus without complications; I25.2 Old myocardial infarction; E03.9 Hypothyroidism, unspecified; I25.10 Atherosclerotic heart disease of native coronary artery without angina pectoris; I48.91 Unspecified atrial fibrillation; I11.9 Hypertensive heart disease without heart failure; Z85.038 Personal history of other malignant neoplasm of large intestine; W18.30XA Fall on same level, unspecified, initial encounter; Y93.89 Activity, other specified; Y92.410 Unspecified street and highway as the place of occurrence of the external cause; Y99.8 Other external cause status
CPT/HCPCS: 29130; 90471; 90715; 99284

== ENCOUNTER → 2020-04-27 | Outpatient (CLI) | payer MEDICARE ==
[~2020-04-27] MED LIST changes: +AMLO-211 PO; -AMLO10TA8 PO; -LATA2.5D3 EACHEYE; +LATA2.5D4 EACHEYE
== END | disposition home or self-care (01) ==
LOC: RAD 15:17 → EDSTATUS 15:45
PROVIDERS: ATTEND Internal Medicine
DX: I65.23 Occlusion and stenosis of bilateral carotid arteries (principal); I25.9 Chronic ischemic heart disease, unspecified; I47.1 Supraventricular tachycardia; I48.91 Unspecified atrial fibrillation; Q23.1 Congenital insufficiency of aortic valve; R09.89 Other specified symptoms and signs involving the circulatory and respiratory systems; Z95.1 Presence of aortocoronary bypass graft
CPT/HCPCS: 93880

== ENCOUNTER 2020-11-18 03:57 | Observation (INO) | payer MEDICARE, OTHER ==
[~2020-11-18] VITALS: Ht 167.6 cm; Wt 99.3 kg
[~2020-11-18 03:57] MED LIST changes: -FOLI-17 PO; +FOLI1TAB32 PO; +METH-640 PO; -METH750T2 PO
--- NOTE | 2020-11-18 04:14 | NUR ---
MONICA FROM HOME. PT BEGAN TO FEEL N/V AND DIARHEA AND DIZZINESS STARTING 45 MINS PRIOR TO ARRIVAL. PT STATES SHE HAS A HX OF NM AND STENTS. REPORTS SHE BELIEVES SHE IS HAVING ANOPTHER NM. SAYS EVERY NM APPEARS DIFFERENTLY AND THIS SEEMS LIKE ANOTHER ONE. ATTACHED TO CARD.SP02.BP MONITORS. VSS. CALL LIGHT WITHIN REACH. NADN. BED IN LOW POSITION. BREATHIG EVEN AND UNLABORED. WCTM
--- NOTE | 2020-11-18 04:16 | NUR ---
EKG BEING COMPLETED.
[2020-11-18] MEDS ORDERED: ONDANSETRON 2MG/ML, 2ML ONE (04:36)
--- NOTE | 2020-11-18 04:50 | NUR ---
PT WAS GIVEN 1 NITRO AND 324 ASIRIN PATIENT FINANCIAL SPECIALIST.
[2020-11-18] MEDS ORDERED: ONDANSETRON 2MG/ML, 2ML IVPush ONE (05:00)
[2020-11-18] MEDS ORDERED: ASPIRIN 81 MG TABLET CHEW PO ONE (05:00)
[2020-11-18 05:06] LABS: BASOPHILS % (AUTO) 0 % (0-1); EOSINOPHILS % (AUTO) 1 % (1-7); LYMPHOCYTES % (AUTO) 9 % (22-44); MEAN CORPUSCULAR HEMOGLOBIN 31.4 pg (27.0-34.8); MEAN CORPUSCULAR HGB CONC 34.5 g/dL (32.4-35.8); MEAN PLATELET VOLUME 8.6 fL (7.4-10.4); MONOCYTES % (AUTO) 8 % (2-9); NEUTROPHILS % (AUTO) 83 % (42-75); PLATELET COUNT 202 x10^3/uL (130-400); RED BLOOD COUNT 4.07 x10^6/uL (3.82-5.3); RED CELL DISTRIBUTION WIDTH 15.5 % (9.6-15.2)
[2020-11-18 05:08] LABS: MD NO
[2020-11-18 05:13] LABS: ALANINE AMINOTRANSFERASE 18 U/L (12-78); ALBUMIN 3.5 g/dL (3.4-5.0); ANION GAP 8 mmol/L (5-15); CALCIUM 8.9 mg/dL (8.5-10.1); CHLORIDE 108 mmol/L (98-107); CREATININE 1.15 mg/dL (0.55-1.02)
[2020-11-18 05:17] LABS: ALKALINE PHOSPHATASE 78 U/L (45-117); BILIRUBIN,TOTAL 0.7 mg/dL (0.2-1.0); TOTAL PROTEIN 6.7 g/dL (6.4-8.2); TROPONIN I < 0.015 ng/mL (0.000-0.045)
--- NOTE | 2020-11-18 05:36 | NUR ---
Patient is resting comfortably in bed. Bed in lowest, rails engaged, call light on lap. Vital Signs within normal limits. TM. REGISTRATION AT BEDSIDE. FRANCISCAN.
--- NOTE | 2020-11-18 07:01 | NUR ---
GAVE REPORT TO LILLIANA NAVA
--- NOTE | 2020-11-18 07:24 | NUR ---
DR ESTEBAN BEDSIDE
[2020-11-18] MEDS ORDERED: AMLODIPINE 5 MG TABLET PO ONE (08:00)
[2020-11-18] MEDS ORDERED: SENNA/DOCUSATE TABLET PO PRN (08:00)
[2020-11-18] MEDS ORDERED: POLYETHYLENE GLYCOL 17 GM PACKET PO PRN (08:00)
[2020-11-18] MEDS ORDERED: ONDANSETRON 2MG/ML, 2ML IVPush PRN (08:00)
[2020-11-18] MEDS ORDERED: morphine SULFATE 10 MG/ML, 1ML IVPush PRN (08:00)
[2020-11-18] MEDS ORDERED: ACETAMINOPHEN 325 MG TABLET PO PRN (08:00)
[2020-11-18] MEDS ORDERED: ONDANSETRON ODT 4 MG PO PRN (08:00)
--- NOTE | 2020-11-18 08:09 | NUR ---
Pt to be admitted to room 519. Report called to Elvia.
[2020-11-18] MEDS ORDERED: CHOLECALCIFEROL 1,000 UNIT TABLET PO SCH (09:11)
[2020-11-18] MEDS: INSULIN LISPRO 100 UNITS/ML, PEN SQ-INSULIN SCH ×3 (11:00→21:53)
[2020-11-18 12:03] LABS: TROPONIN I < 0.015 ng/mL (0.000-0.045)
[2020-11-18] MEDS ORDERED: AMLODIPINE 5 MG TABLET ONE (12:52)
[2020-11-18] MEDS: METOPROLOL TARTRATE 50 MG TAB PO SCH ×2 (13:00→21:52)
[2020-11-18] MEDS: HYDROCHLOROTHIAZIDE 12.5 MG CAPSULE PO SCH (13:00)
[2020-11-18] MEDS: SOTALOL 120MG TABLET PO SCH (13:00)
[2020-11-18] MEDS: FOLIC ACID 1 MG TABLET PO SCH (13:01)
[2020-11-18] MEDS: MAGNESIUM OXIDE 400 MG TABLET PO SCH (13:01)
[2020-11-18] MEDS: SPIRONOLACTONE 25 MG TABLET PO SCH (13:01)
[2020-11-18] MEDS: CLOPIDOGREL 75 MG TABLET PO SCH (13:01)
[2020-11-18] MEDS: ENOXAPARIN 40 MG/0.4 ML SQ SCH (13:02)
[2020-11-18] MEDS: LOSARTAN 50MG TABLET PO SCH (13:02)
[2020-11-18] MEDS: ISOSORBIDE MONONITRATE ER 60 MG TABLET PO SCH (13:02)
[2020-11-18] MEDS: LEVOTHYROXINE 100 MCG TABLET PO SCH (13:08)
[2020-11-18 13:45] LABS: MICROSCOPIC AUTO
[2020-11-18] MEDS ORDERED: SPIR25TA5 PO (15:15)
[2020-11-18] MEDS ORDERED: AMLO-150 PO (15:15)
[2020-11-18 15:29] VITALS: BP 105/65
[2020-11-18 17:31] LABS: TROPONIN I < 0.015 ng/mL (0.000-0.045)
[2020-11-18 20:51] VITALS: BP 86/49
[2020-11-18] MEDS ORDERED: LATANOPROST OPHTH 0.005%, 2.5ML EACHEYE SCH (21:00)
[2020-11-18] MEDS ORDERED: ATORVASTATIN 40 MG TABLET PO SCH (21:00)
[2020-11-18 21:07] VITALS: BP 125/77
[2020-11-19] MEDS: SOTALOL 120MG TABLET PO SCH (01:04)
[2020-11-19] MEDS: MAGNESIUM OXIDE 400 MG TABLET PO SCH ×2 (01:04→14:39)
[2020-11-19 01:39] VITALS: BP 116/64
[2020-11-19 05:19] LABS: BASOPHILS % (AUTO) 0 % (0-1); EOSINOPHILS % (AUTO) 3 % (1-7); LYMPHOCYTES % (AUTO) 28 % (22-44); MEAN CORPUSCULAR HEMOGLOBIN 31.6 pg (27.0-34.8); MEAN CORPUSCULAR HGB CONC 34.4 g/dL (32.4-35.8); MEAN PLATELET VOLUME 8.7 fL (7.4-10.4); MONOCYTES % (AUTO) 8 % (2-9); NEUTROPHILS % (AUTO) 62 % (42-75); PLATELET COUNT 173 x10^3/uL (130-400); RED BLOOD COUNT 3.92 x10^6/uL (3.82-5.3); RED CELL DISTRIBUTION WIDTH 16.1 % (9.6-15.2)
[2020-11-19 05:22] LABS: MD NO
[2020-11-19 05:32] LABS: ANION GAP 4 mmol/L (5-15); CALCIUM 9.1 mg/dL (8.5-10.1); CHLORIDE 107 mmol/L (98-107); CREATININE 0.95 mg/dL (0.55-1.02)
[2020-11-19 05:36] LABS: CHOL/HDL RATIO 4.7; CHOLESTEROL, TOTAL 150 mg/dL (140-239); HDL CHOL % 21 % (28-40); HDL CHOLESTEROL (DIRECT) 32 mg/dL (40-60); LDL CHOLESTEROL,CALCULATED 75 mg/dL (54-169); LDL/HDL RATIO 2.3 (0.5-3.0); TRIGLYCERIDES 216 mg/dL (50-200); VLDL CHOLESTEROL 43 mg/dL (0-25)
[2020-11-19] MEDS: LEVOTHYROXINE 100 MCG TABLET PO SCH (06:01)
[2020-11-19 07:38] VITALS: BP 110/71
[2020-11-19] MEDS: METOPROLOL TARTRATE 50 MG TAB PO SCH (09:00)
[2020-11-19] MEDS ORDERED: CHOLECALCIFEROL 1,000 UNIT TABLET PO SCH (09:00)
[2020-11-19] MEDS: INSULIN LISPRO 100 UNITS/ML, PEN SQ-INSULIN SCH ×2 (10:11→13:05)
[2020-11-19 14:31] VITALS: BP 125/79
[2020-11-19] MEDS: CLOPIDOGREL 75 MG TABLET PO SCH (14:37)
[2020-11-19] MEDS: LOSARTAN 50MG TABLET PO SCH (14:38)
[2020-11-19] MEDS: HYDROCHLOROTHIAZIDE 12.5 MG CAPSULE PO SCH (14:38)
[2020-11-19] MEDS: ISOSORBIDE MONONITRATE ER 60 MG TABLET PO SCH (14:38)
[2020-11-19] MEDS: FOLIC ACID 1 MG TABLET PO SCH (14:39)
[2020-11-19] MEDS: SPIRONOLACTONE 25 MG TABLET PO SCH (14:41)
[2020-11-19] MEDS: ENOXAPARIN 40 MG/0.4 ML SQ SCH (14:42)
[2020-11-19] MEDS ORDERED: SOTALOL 80MG TABLET PO SCH ×2 (14:52→21:00)
== END 2020-11-19 18:39 | disposition home or self-care (01) ==
LOC: ED 05:34 → 5SO 09:05 → INTOOBSV 09:05
PROVIDERS: ADMIT Family Medicine; ATTEND Family Medicine
DX: R11.2 Nausea with vomiting, unspecified (principal); R19.7 Diarrhea, unspecified; R42 Dizziness and giddiness; D72.829 Elevated white blood cell count, unspecified; I25.118 Atherosclerotic heart disease of native coronary artery with other forms of angina pectoris; I35.0 Nonrheumatic aortic (valve) stenosis; I48.0 Paroxysmal atrial fibrillation; I12.9 Hypertensive chronic kidney disease with stage 1 through stage 4 chronic kidney disease, or unspecified chronic kidney disease; E11.22 Type 2 diabetes mellitus with diabetic chronic kidney disease; N18.9 Chronic kidney disease, unspecified; E03.9 Hypothyroidism, unspecified; E78.5 Hyperlipidemia, unspecified; E66.9 Obesity, unspecified; I21.9 Acute myocardial infarction, unspecified; I25.2 Old myocardial infarction; J98.11 Atelectasis; Z85.038 Personal history of other malignant neoplasm of large intestine; Z95.5 Presence of coronary angioplasty implant and graft; Z88.0 Allergy status to penicillin; Z79.899 Other long term (current) drug therapy; Z90.710 Acquired absence of both cervix and uterus; Z95.1 Presence of aortocoronary bypass graft; Z90.49 Acquired absence of other specified parts of digestive tract; Z79.02 Long term (current) use of antithrombotics/antiplatelets
CPT/HCPCS: 36415; 71045; 80048; 80053; 80061; 81001; 82962; 83036; 83880; 84484; 85025; 87086; 93005; 93306; 96372; 96374; 96375; 99285; G0378; J1650; J1815; J2405